=== PATIENT | male | born 1960 | race Caucasian/White ===

== ENCOUNTER 2024-12-26 11:47 | Outpatient (CLI) | payer MEDICARE, SELFPAY ==
--- NOTE | ~2024-12-26 | PE_ITS ---
EXAMINATION: PET_PETPSMAST_PT DATE: 12/26/2024 14:13 INDICATION: Prostate cancer TECHNIQUE: 5.546 mCi of Illucix Ga-68([id number]) was administered i.v. Low dose computed luis graphy (CT) images were acquired from the base of the brain to the base of the brain to the proximal thighs for attenuation correction and anatomic localization. Positron emission tomography (PET) image s were acquired in the same distribution beginning 90 minutes after injection. Images including fused PET/CT images were reconstructed in axial, coronal, and sagittal planes. Automated exposure control technique was employed. The dose-length product was 1082.05mGy-cm. COMPARISON: None FINDINGS: Head/neck: Typical pattern of symmetric physiologic increased activity in the lacrimal, parotid and submandibula r glands as well as along the mucosa of the nasal and oral cavities, pharynx and hypopharynx. No path ologically enlarged cervical lymphadenopathy or suspicious foci of increased uptake in the visualized head or neck. Chest: Mild atelectasis in the bilateral lower lobes and dependent right upper lobe. No suspicious pulmonary nodules, pneumonia, pulmonary edema or pleural effusion. Borderline heart size. No pericardial effus ion. Thoracic aorta is normal in caliber. No pathologically enlarged or PSMA avid thoracic lymphadeno maggi. Abdomen/pelvis/proximal thighs: Physiologic renal accumulation and excretion of activity in the right kidney, bladder and along porti ons of right ureter. Postoperative change of prior left nephrectomy. Prostatomegaly measuring 5.7 x 3 .7 cm. There is a small region of asymmetric increased uptake at the right peripheral zone of the pro state with maximal SUV of 5.3 likely representing the site of the reported primary prostate cancer. P hotopenic defects associated with multiple low-attenuation hepatic cysts, the largest in the right he patic lobe measuring 5.6 cm. Otherwise normal degree and slightly heterogenous pattern of increased u ptake throughout the liver and spleen without radiologic correlate or dominant PSMA avid lesion. The gallbladder, pancreas and bilateral adrenal glands are normal. Moderate uptake scattered throughout t he bowels with typical duodenal and proximal jejunal predominance and without radiologic correlate, a lso likely physiologic. No other abnormal foci of increased uptake or pathologically enlarged lymphad enopathy in the abdomen, pelvis or proximal thighs. Musculoskeletal: Moderate cervical, mild thoracic and severe lumbar spondylosis. Tiny sclerotic bone island without ab normal activity at the right femoral head. No suspicious lytic, blastic or abnormally PSMA avid bone lesions. IMPRESSION: 1. Small focus of mild increased uptake at the right peripheral zone of the is enlarged prostate cons istent with primary prostate cancer. No evident metastatic disease. 2. Status post left nephrectomy. Reviewed, dictated and finalized at location A. IMPRESSION: 1. Small focus of mild increased uptake at the right peripheral zone of the is enlarged prostate consistent with primary prostate cancer. No evident metastati c disease. 2. Status post left nephrectomy.
--- OUTSIDE RECORDS SUMMARY | 2024-12-26 11:53 | XMS_ITS | Patient Health Record ---
Author Organization [facility] Address [address] [place], [place] [address] Care Team Providers Care Circular Knife Machine Cutter Name Role Phone LARRY MORGAN Unavailable [phone] Tirso Weber Unavailable Unavailable Allergies Allergen (clinical drug ingredient) Drug/Non Drug Allergy documented on EMR Reaction Allergy Type Onset Date Status ibuprofen Ibuprofen Unknown Drug Allergy 10/10/2012 active Non-steroidal anti-inflammatory agent (FN) NSAIDs Unknown Drug Allergy Active Reason For Referral No Information Medications Medication SIG (Take, Route, Frequency, Duration) Notes Start Date End Date Status clonazePAM 1 MG Oral Tablet ORAL clonazepam 1 MG Oral TabletOriginal Medicationclonazepam 1 MG Oral Tablet *Reorder from [employer] for eRx and Interaction Alerts* 10/10/2012 Active Amitriptyline & Diet Manage Pr Active Simvastatin 10 MG Oral Tablet ORAL simvastatin 10 MG Oral TabletOriginal Medicationsimvastatin 10 MG Oral Tablet *Reorder from [employer] for eRx and Interaction Alerts* 10/10/2012 Active Immunizations Vaccine Route Administration Date Status Comme nts Typhoid, parenteral Unknown 12/20/2017 Administered Tdap Unknown 11/05/2011 Administered Influenza, unspecified formulation Unknown 06/12/2015 A dministered Hep A, unspecified formulation Unknown 11/11/2017 Admin istered Influenza, quadrivalent, spl it, preservative free, 3 years or older Unknown 04/21/2019 Administered Influenza, quadrivalent, spl it, preservative free, 3 years or older Unknown 03/27/2020 Administered Influenza, quadrivalent, spl it, preservative free, 3 years or older Unknown 04/02/2021 Administered Influenza, quadrivalent, spl it virus Unknown 04/28/2018 Administered Vital Signs Height-cm 177.80 cm 10/17/2024 Weight-kg 83.92 kg 10/17/2024 Height 70.00 in 10/17/2024 Weight 185 lbs 10/17/2024 BMI 26.54 kg/m2 10/17/2024 Encounters Encounter Location Date Provider Diagnosis [facility] [address] [place], [place] [id number] 10/03/2024 LARRYJESUS RODRIGUEZTENBURG Metatarsalgia of right foot M77.41 ; Metatarsalgia of left foot M77.42 ; Other eccrine sweat disorders L74.8 ; Pain in right foot M79.671 and Left foot pain M79.672 [facility] [address] [place], [place] [address] 10/17/2024 LARRY MICHAELTENBURG Metatarsalgia of right foot M77.41 ; Metatarsalgia of left foot M77.42 ; Other eccrine sweat disorders L74.8 ; Pain in right foot M79.671 and Left foot pain M79.672 Assessments Encounter Date Diagnosis (ICD Code) Assessment Notes Treatment Notes Treatment Clinical Notes Section Notes 10/03/2024 Metatarsalgia of right foot (ICD-10 - M77.41) 10/03/2024 Metatarsalgia of left foot (ICD-10 - M77.42) 10/17/2024 Metatarsalgia of right foot (ICD-10 - M77.41) 10/17/2024 Metatarsalgia of left foot (ICD-10 - M77.42) 10/17/2024 Other eccrine sweat disorders (ICD-10 - L74.8) 10/03/2024 Other eccrine sweat disorders (ICD-10 - L74.8) 10/03/2024 Pain in right foot (ICD-10 - M79.671) 10/17/2024 Pain in right foot (ICD-10 - M79.671) 10/17/2024 Left foot pain (ICD-10 - M79.672) 10/03/2024 Left foot pain (ICD-10 - M79.672) 10/03/2024 Other Pyrogallic Acid: Lesions were debrided and pyrogallic acid was applied to the area. Patient was advised to keep dry for 3 days. 10/17/2024 Other Pyrogallic Acid: Lesions were debrided and pyrogallic acid was applied to the area. Patient was advised to keep dry for 3 days. Plan Of Treatment No Information Insurance Providers Payer Name Payer Address Payer Phone Subscriber Number Group Number Insured Name Patient Relationship to Insured Coverage Start Date Coverage End Date [facility] [address] [address] [place], [place] [id number] CAMELIA RAI Self - patient is the insured Medical (General) History Medical History History ICD Code Arthritis Back Trouble Surgical History Surgery Date(Month/Year) kidney transplant
--- OUTSIDE RECORDS SUMMARY | 2024-12-26 11:53 | XMS_ITS | Encounter Summary ---
Author Organization [facility] Address [address] [place] [address] Care Team Providers Care Welder Fitter Arc Name Role Phone Tirso Weber MD Primary Care Provider [phone] Encounter Details Date Type Department Care Team (Late st Contact Info) Description 01/26/2020 Prep for Procedure [facility] [place], [place] [phone] Cecil Jane MD 3 [facility] Brian [address] [place] [phone] Social History Tobacco Use Types Packs/Day Years Used Date Smoking Tobacco: Never Smokeless Tobacco: Never Alcohol Use Standard Drinks/Week Comments Yes 20 (1 standard drink = 0.6 oz pu re alcohol) AUDIT-C Answer Date Recorded Frequency of Alcohol Consumption 4 or more times a week 11/08/2018 Average Number of Drinks 3 or 4 019 Frequency of Binge Drinking Monthly 10/20 PHQ-2 Answer Date Recorded PHQ-2 Score - If the patient scores above 3, please move on to questions 3-9 0 11/20/2019 Sex and Gender Information Value Date Recorded Sex Assigned at Male 11/08/2018 8:38 AM CDT Legal Sex Male 7:22 PM CDT Gender Identity Male 11/08/2018 8:38 AM CDT Sexual Orientation Straight 11/08/2018 8: 38 AM CDT COVID-19 Exposure Response Date Recorded In the last month, have you been in contact with someone who was confirmed or suspected to have Coronavirus / COVID-19? No / Unsure 01/29/2020 12:03 PM CDT documented as of this encounter Plan of Treatment Upcoming Encounters Date Type Department Care Team (Late st Contact Info) Description 10/18/2025 8:40 AM CDT Office Visit [facility] [address], [address] [place] [phone] Casey Veras MD [address] [place] [address] 11/22/2025 9:40 AM CDT Office Visit [facility] [address] [phone] Tirso Weber MD [address] [place] [address] 12/04/2025 10:00 AM CDT Office Visit [facility] [address], [address] [place] [phone] Alfred Rangel MD [address] [place] [address] documented as of this encounter Results * PRE-SURGICAL/PRE-PROCEDURE CORONAVIRUS (COVID 19) (01/26/2020 9:00 AM CDT) CORONAVIRUS SARS COV 2 PCR (RESP) NOT DETECTED NOT DETECTED 01/30/2020 7:58 PM CDT [facility] Comment: A Not Detected (negative) test result for this test means that SARS- CoV-2 RNA was not present in the specimen above the limit of detection. A negative result does not rule out the possibility of COVID-19 and should not be used as the sole basis for treatment or patient management decisions. If COVID-19 is still suspected, based on exposure history together with other clinical findings, re-testing should be considered in consultation with public health authorities. Laboratory test results should always be considered in the context of clinical observations and epidemiological data in making a final diagnosis and patient management decisions. Please review the Fact Sheets and FDA authorized labeling available for health care providers and patients using the following websites: https://www.[employer] Capture.[email or web address]/home/Covid-19/HCP/NAAT/fact-sheet2 https://www.[employer].[email or web address]/home/Covid-19/Patients/NAAT/ fact-sheet2 This test has been authorized by the FDA under an Emergency Use Authorization (EUA) for use by authorized laboratories. Due to the current public health emergency, [facility] is receiving a high volume of samples from a wide variety of swabs and media for COVID-19 testing. In order to serve patients during this public health crisis, samples from appropriate clinical sources are being tested. Negative test results derived from specimens received in non-commercially manufactured viral collection and transport media, or in media and sample collection kits not yet authorized by FDA for COVID-19 testing should be cautiously evaluated and the patient potentially subjected to extra precautions such as additional clinical monitoring, including collection of an additional specimen. Methodology: Nucleic Acid Amplification Test (NAAT) includes PCR or TMA Additional information about COVID-19 can be found at the [facility] website: www.[employer]/Covid19. Test performed at [facility] [address] [place] [address] Director: JEFF CASTAÑEDA DO,MPH NASOPHARYNGEAL SWAB / Unknown 01/26/2020 9:00 AM CDT us Cecil Jane MD MICROBIOLOGY - GENERAL ORDERABLE S Final Result [facility] [id number] [place] [id number] [place] [address] documented in this encounter Visit Diagnoses Diagnosis Constipation- Primary Unspecified constipation documented in this encounter Additional Health Concerns Infection Onset Date Last Indicated Resolved Time COVID-19 Rule Out 01/26/2020 01/26/2020 01/30/2020 7:58 PM CDT documented as of this encounter Care Teams Welder Fitter Arc Relationship Specialty Start Date End Date Tirso Weber MD [address] [place] [address] PCP - General 08/15/15 documented as of this encounter
--- OUTSIDE RECORDS SUMMARY | 2024-12-26 11:53 | XMS_ITS ---
Author Organization [facility] Address [address] [place], [place] [address] Care Team Providers Care Mechanical System Technician Name Role Phone LARRY BROWN Unavailable [phone] Tirso Weber Unavailable Unavailable Allergies Allergen (clinical [...] Medicationsimvastatin 10 MG Oral Tablet *Reorder from [facility] for eRx and Interaction Alerts* 10/10/2012 Active clonazePAM 1 MG Oral Tablet ORAL clonazepam 1 MG Oral TabletOriginal Medicationclonazepam 1 MG Oral Tablet *Reorder from [employer] for eRx and Interaction Alerts* 10/10/2012 Active Amitriptyline & Diet Manage Pr Active Vital Signs Height 70.00 in 10/03/2024 Weight 185 lbs 10/03/2024 BMI 26.54 kg/m2 10/03/2024 Height-cm 177.80 cm 10/03/2024 Weight-kg 83.92 kg 10/03/2024 Encounters Encounter Location Date Provider Diagnosis [facility] [address] [place], [place] [phone] 10/03/2024 LARRY BROWN Metatarsalgia of right foot [...] Notes * CAMELIA RAIDOB:1960 (64 yo M)Acc No.[id number]:10/03/2024 Progress Notes Patient: CAMELIA CONNELLY Provider: Beni Brown DPM :1960 A ge:64 Y S ex:Male Date:10/03/2024 Address:[address] [place] [address] [place] [address] Subjective: * Chief Complaints: * 1 . [...] Medicationclonazepam 1 MG Oral Tablet *Reorder from [employer] for eRx and Interaction Alerts*, Taking Simvastatin 10 MG Oral Tablet ORAL , Notes to Pharmacist: simvastatin 10 MG Oral TabletOriginal Medicationsimvastatin 10 MG Oral Tablet *Reorder from [employer] for eRx and Interaction Alerts*, Medication List [...] X-RAY EXAM OF FOOT, Modifiers: [place] , [address] X-RAY EXAM OF FOOT, Modifiers: LT * Billing Information: * Visit Code: 67458 Office Visit, New Pt., Level 3. * Procedure Codes: 55200 X-RAY EXAM OF FOOT. Modifiers: RT 89267 X-RAY EXAM OF FOOT. Modifiers: LT * Electronic signature of LARRY BROWN DPM on 12/26/2024 at 11:53 AM CDT Sign off status: Pending * Provider: Beni Brown DPM Date: 0 10/03/2024 Generated for Jenni sargent/Jessica/[place] on: 0 12/26/2024 11:53 AM CDT History and Physical Notes * HPI [...]
--- OUTSIDE RECORDS SUMMARY | 2024-12-26 11:53 | XMS_ITS | Clinical Summary ---
Author Organization [facility] Address [address] [place] [address] Care Team Providers Care Logistics Lead Name Role Phone Tirso Weber MD Primary Care Provider [phone] Allergies No known active allergies Medications Probiotic Product (ALIGN) Cap Take 1 capsule by mouth daily. 12/04/19 15 Active multivitamin tablet Take 1 tablet by mouth daily. Active fish oil 1000 MG Cap capsule Take 2 capsules (2,000 mg total) by mouth 2 (two) times daily. Active Glucosamine-Chond roitin (GLUCOSAMINE CHONDR COMPLEX OR) Take by mouth daily. Active clonazePAM 2 MG tablet Take 1 tablet (2 mg total) by mouth nightly at bedtime. 10/25/19 20 Active FIBER ADULT GUMMIES OR Take 1 tablet by mouth 2 (two) times a day. Active aspirin EC (ECOTRIN) 81 MG tablet Take 1 tablet (81 mg total) by mouth daily. Active simvastatin (ZOCOR) 40 MG tabletIndications :Mixed hyperlipidemia TAKE 1 TABLET(40 MG) BY MOUTH DAILY 90 tablet 3 07/19/19 25 Active Ascorbic Acid (VITAMIN C) 500 MG Cap Take 1 capsule by mouth daily. 12/20/19 24 Active Cholecalciferol (VITAMIN D3) 1000 units Cap Take 1 capsule by mouth daily. 12/20/19 24 Active traMADol (ULTRAM) 50 MG tablet 1 as needed (50 MG) Active amitriptyline (ELAVIL) 10 MG tabletIndications :Primary insomnia TAKE 1 TABLET(10 MG) BY MOUTH EVERY NIGHT AT BEDTIME 90 tablet 3 12/26/19 25 Active amitriptyline (ELAVIL) 10 MG tabletIndications :Primary insomnia TAKE 1 TABLET(10 MG) BY MOUTH EVERY NIGHT AT BEDTIME 90 tablet 1 08/24/19 25 025 Discontinued ciprofloxacin (CIPRO) 500 MG tablet Take 1 tablet (500 mg total) by mouth 2 (two) times daily. 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 There is no clinical indication of hyper adrenal ism, acromegaly or thyroid dysfunction. I have requested laboratory workup, including cortisol, acth, IGF-1 as well as TFTs. If these these results are negative, would recommend follow-up MRI in a year Vitamin D deficiency 10/09/2022 Tingling sensation in face 10/09/2022 Snoring 07/29/2021 Overview (12/03/2023): Last Assessment & Plan: His snoring is not disturbing his sleep and he is practicing positional therapy. Peyronie's syndrome 11/10/2018 Wrist pain, right 11/10/2018 Elevated PSA 12/04/2014 Male erectile dysfunction 12/03/2014 Fatigue 01/31/2014 PLMD (periodic limb movement disorder) 3 Overview (12/03/2023): Last Assessment & Plan: PLMS are under control with Klonopin 2 mg at bedtime. Osteoarthrosis 09/19/2012 Notalgia 08/10/2012 Hyperlipidemia 03/09/2012 Willing to be kidney donor 03/07/2012 Resolved Problems Problem Noted Date Diagnosed Date Resolved Date COVID-19 05/27/2021 06/17/2022 Pyriformis syndrome 12/03/2014 11/22/19 25 Encounters Date Type Department Care Team Description 12/05/2024 8:40 AM CDT Office Visit [facility] - [address], [address] [place] [address] Alfred Rangel MD Follow Up 12/05/2024 Scan HEALTH INFO SRVCS Scanned, Doc [facility] 12/05/2024 Travel 11/30/2024 Scan MG HEALTH INFO SRVCS Scanned, Doc [facility] Group 11/22/2024 Results Follow-Up [facility] Internal [address] [address] Tirso Weber MD HEPATITIS C ANTIBODY, ANTINUCLEAR ANTIBODY WI RFX (ЮЛИЯ), C-REACTIVE PROTEIN, Additional followed-up results: 7 11/21/2024 9:20 AM CDT Office Visit [address] [address] Tirso Weber MD Follow Up; Hyperlipidemia; Vitamin D Deficiency; Insomnia NOS; Wrist Pain (Patient c/o worsening B/L wrist pain, patient report having previous xray and 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 ) 11/21/2024 - 11/21/2024 11:59 PM CDT [facility] [address] Tirso Weber MD Discharge Disposition: Home or Self Care (Routine Discharge) 11/21/2024 Travel 11/17/2024 Patient Outreach [address] [address] Tirso Weber MD Pre-visit Gap Closure 10/12/2024 8:20 AM CDT Office Visit [facility] - [facility] [address] [facility], [address] [place] [address] Gómez Veras MD Follow Up 10/12/2024 Travel 10/10/2024 9:50 AM CDT - 10/10/2024 11:59 PM CDT Hospital Encounter [facility] [address] [place] [address] Gómez Veras MD Discharge Disposition: Home or Self Care (Routine Discharge) 10/10/2024 Travel 10/03/2024 Scan MG HEALTH INFO SRVCS Scanned, Doc [facility] from Last 3 Months Immunizations Immunization Administration Dates Next Due Fluzone 6 Months+ (5.0 mL Multi Dose Vial) 04/28 Fluzone 6 Months+ Quad (0.5 mL Prefilled Syringe) 04/02/2021,03/27/2020,04/21/2019 Hepatitis A (Generic) 11/11/2017 Influenza (Generic) 06/12/2015 Tdap (Generic) 11/05/2011 Typhoid Vi Polysaccharide Va cc 25 Mcg/0.5Ml Im Soln 12/20/2017 Family History Medical History Relation Comments Arthritis Brother 1 Heart Disease Brother 1 Heart Disease Brother 2 Heart Disease Brother 3 No Known Problems Father Diabetes Maternal Aunt Heart Disease Maternal Aunt No Known Problems Maternal Grandfather No Known Problems Maternal Grandmother No Known Problems Maternal Uncle Arthritis Mother Cancer Mother No Known Problems Paternal Aunt Cancer Paternal Grandfather No Known Problems Paternal Grandmother No Known Problems Paternal Uncle Arthritis Sister Cancer Sister Heart Disease Sister Hypertension Sister Kidney Disease Sister Relation Status Comments Brother 1 Brother 2 Brother 3 Father Maternal Aunt Maternal Grandfather Maternal Grandmother Maternal Uncle Mother Paternal Aunt Paternal Grandfather Paternal Grandmother Paternal Uncle Sister Social History Tobacco Use Types Packs/Day Years Used Date Smoking Tobacco: Never Passive Smoke Exposure: Past Smokeless Tobacco: Never Tobacco Cessation:Counseling Given: Yes Alcohol Use Standard Drinks/Week Comments Yes 13.3 (1 standard drink = 0.6 oz pure alcohol) 6-12 beers weekly AUDIT-C Answer Date Recorded Frequency of Alcohol Consumption 4 or more times a week 11/08/2018 Average Number of Drinks 3 or 4 019 Frequency of Binge Drinking Monthly 10/20 PHQ-2 Answer Date Recorded Patient Health Questionnaire-2 Score 0 11/21/2024 Sex and Gender Information Value Date Recorded Sex Assigned at Male 11/08/2018 8:38 AM CDT Legal Sex Male 7:22 PM CDT Gender Identity Male 11/08/2018 8:38 AM CDT Sexual Orientation Straight 11/08/2018 8: 38 AM CDT Last Filed Vital Signs Vital Sign Reading Time Taken Comments Blood Pressure 132/86 12/05/2024 8:42 AM CDT Pulse 61 12/05/2024 8:42 AM CDT Temperature 36.7 C (98.1 F) 11/21/2024 9:45 AM CDT Respiratory Rate 16 12/05/2024 8:42 AM CDT Oxygen Saturation 97% 12/05/2024 8:42 AM CDT Inhaled Oxygen Concentration - - Weight 87.1 kg (192 lb) 12/05/2024 8:42 AM CDT Height 177.8 cm (5' 10) 12/05/2024 8:42 AM CDT Body Mass Index 27.55 12/05/2024 8:42 AM CDT Plan of Treatment Upcoming Encounters Date Type Department Care Team (Late st Contact Info) Description 10/18/2025 8:40 AM CDT [facility] - [address], [address] [place] [phone] Gómez Veras MD [address] [place] [phone] 11/22/2025 9:40 AM CDT Office Visit [facility] - [address] [address] Tirso Weber MD [address] [place] [phone] 12/04/2025 10:00 AM CDT Office Visit [facility] - [address], [address] [place] [phone] Alfred Rangel MD [address] [place] [phone] Health Maintenance Due Date Last Done Comments Pneumococcal Vaccine: 50+ Years (1 of 1 - PCV) 2008 Zoster Vaccines (1 of 2) 2008 DTaP, Tdap and Td Vaccines (2 - Td or Tdap) 11/04/2021 11/05/2011 Annual Medicare Wellness Visit 2023 COVID-19 Vaccine ( - season) 2025 05/28/2022, 09/26/2021, 09/09/2020, Additional history exists Postponed from 02/20/2024 (Patient Refused) Colorectal Cancer Screening Colonoscopy (10 Years) 01/28/2030 01/29/2020 RSV Immunization or 60+ Years (1 - 1-dose 75+ series) 2033 Hepatitis C Completed 11/21/2024 PHQ-2 (Physician Capac) Completed 11/21/2024 Meningococcal B Vaccine Aged Out No l onger eligible based on patient's age to complete this topic Meningococcal Vaccine Aged Out No dewayne tata eligible based on patient's age to complete this topic RSV Immunizations Under 20 Months Aged Out No longer eligible based on patient's age to complete this topic Procedures Procedure Name Priority Date/Time Associated Diagnosis Comments COLLECTION VENOUS BLOOD VENIPUNCTURE Routine 11/21/2024 10:59 AM CDT Mixed hyperlipidemia Vitamin D deficiency Pain in both wrists Need for hepatitis C screening test CBC W/DIFF AUTOMATED Routine 11/21/2024 10:59 AM CDT Mixed hyperlipidemia LIPID PANEL Routine 11/21/2024 10:59 AM CDT Mixed hyperlipidemia VITAMIN D, 25 OH Routine 11/21/2024 10:5 9 AM CDT Vitamin D deficiency COMPREHENSIVE METABOLIC PANEL Routine 11/21/2024 10:59 AM CDT Mixed hyperlipidemia CK (CPK) Routine 11/21/2024 10:59 AM CDT Mixed hyperlipidemia URINALYSIS, AUTO, COMPLETE Routine 11/21/2024 10:59 AM CDT Mixed hyperlipidemia RHEUMATOID FACTOR, QUANT Routine 11/21/2024 10:59 AM CDT Pain in both wrists C-REACTIVE PROTEIN Routine 11/21/2024 10 :59 AM CDT Pain in both wrists ANTINUCLEAR ANTIBODY WI RFX Routine 11/21/2024 10:59 AM CDT Pain in both wrists HEPATITIS C ANTIBODY Routine 11/21/2024 10:59 AM CDT Need for hepatitis C screening test MRI BRAIN WWO CON Routine 10/10/2024 11: 00 AM CDT Pituitary cyst (HHS/HCC) from Last 3 Months Results * ANTINUCLEAR ANTIBODY WI RFX (ЮЛИЯ) (11/21/2024 10:59 AM CDT) ЮЛИЯ <0.09 11/22/2024 3:31 PM CDT [facility] Comment: NEGATIVE: <0.7 RATIO ЮЛИЯ PROFILE AND TITER NOT PERFORMED THE ЮЛИЯ SCREEN TESTS FOR THE FOLLOWING ANTIBODIES BY EIA: SSA1 (RO), SSB1 (LA), GARCIA, SCL70, JO1, CENTROMERE, ASSISTANT UNIT FORESTER HISTONE MUST BE ORDERED SEPARATELY DNA (DS) ANTIBODY <0.6 IU/ML 025 3:31 PM CDT [facility] Comment: NEGATIVE: <10 IU/mL EQUIVOCAL: 10 to 15 IU/mL POSITIVE: >15 IU/mL THIS QUANTITATIVE ASSAY IS CALIBRATED TO THE [employer]'S WO/80 STANDARD. THE LEVEL OF dsDNA AUTOANTIBODY GERERALLY CORRELATES WITH THE LEVEL OF DISEASE ACTIVITY IN SYSTEMIC LUPUS ERYTHMATOSUS 11/21/2024 10:5 9 AM CDT us Tirso Weber MD LABORATORY Final Result [facility] [address] [place] [phone], [id number] * RHEUMATOID FACTOR, QUANT (11/21/2024 10:59 AM CDT) RHEUMATOID FACTOR <10 <15 IU/ML 11/21/2024 7:48 PM CDT [facility] 11/21/2024 10:5 9 AM CDT Tirso Weber MD LABORATORY Final Result [facility] [address] [place] [address], [id number] * URINALYSIS (11/21/2024 10:59 AM CDT) COLOR (U) YELLOW 11/21/2024 3:07 PM CDT [facility] TRANSPARENCY CLEAR CLEAR 11/21/2024 3:07 PM CDT [facility] SPECIFIC GRAVITY (U) <1.005 1.003 - 1.040 11/21/2024 3:07 PM CDT [facility] U PH 6.0 5.0 - 9.0 11/21/2024 3:07 PM CDT [facility] PROTEIN RANDOM (U) NEGATIVE NEGATIVE 11/21/2024 3:07 PM CDT [facility] GLUCOSE (U) NEGATIVE NEGATIVE 11/21/2024 3:07 PM CDT [facility] KETONES MG/DL (U) NEGATIVE NEGATIVE 11/21/2024 3:07 PM CDT [facility] BILIRUBIN (U) NEGATIVE NEGATIVE 11/21/2024 3:07 PM CDT [facility] BLOOD (U) NEGATIVE NEGATIVE 11/21/2024 3:07 PM CDT [facility] UROBILINOGEN 0.2 0.0 - 2.0 EU/DL 11/21/2024 3:07 PM CDT [facility] NITRITES NEGATIVE NEGATIVE 11/21/2024 3:07 PM CDT [facility] LEUKOCYTES (U) NEGATIVE NEGATIVE 11/21/2024 3:07 PM CDT [facility] RBC/HPF 0-3 0 - 3 /HPF 11/21/2024 3:07 PM CDT [facility] WBC/HPF 0-3 0 - 3 /HPF 11/21/2024 3:07 PM CDT [facility] EPI/HPF 0-3 /HPF 11/21/2024 3:07 PM CDT [facility] BACTERIA (U) NONE SEEN NONE SEEN 11/21/2024 3:07 PM T [facility] URINE SPECIMEN OBTAINED BY CLEAN CATCH PROCEDURE / Unknown 11/21/2024 10:59 AM CDT Tirso Weber MD URINE ORDERABLES Final Result [facility] [address] [place] [address], * (ABNORMAL) COMPREHENSIVE METABOLIC PANEL (11/21/2024 10:59 AM CDT) SODIUM S/P/B 143 136 - 145 MMOL/L 11/21/2024 3:47 PM CDT [facility] POTASSIUM S/P/B 4.6 3.5 - 5.1 MMOL/L 11/21/2024 3:47 PM CDT [facility] CHLORIDE S/P/B 105 98 - 107 MMOL/L 11/21/2024 3:47 PM CDT [facility] CO2 29.2 21 - 32 MMOL/L 11/21/2024 3:47 PM CDT [facility] GLUCOSE 93 70 - 99 MG/DL 11/21/2024 3:47 PM CDT [facility] BUN 15 7 - 18 MG/DL 11/21/2024 3:47 PM CDT [facility] CREATININE S/P/B 1.15 0.70 - 1.30 MG/DL 11/21/2024 3:47 PM CDT [facility] CALCIUM S/P/B 9.4 8.4 - 10.5 MG/DL 11/21/2024 3:47 PM CDT [facility] BILIRUBIN TOTAL S/P/B 0.5 0.2 - 1.0 MG/DL 11/21/2024 3:47 PM CDT [facility] ALKALINE PHOSPHATASE S/P/B 81 45 - 115 U/L 11/21/2024 3:47 PM CDT [facility] AST 34 15 - 37 U/L 11/21/2024 3:47 PM CDT [facility] ALT 37 16 - 63 U/L 11/21/2024 3:47 PM T [facility] TOTAL PROTEIN S/P/B 7.0 6.4 - 8.2 G/DL 11/21/2024 3:47 PM CDT [facility] ALBUMIN S/P/B 3.9 3.4 - 5.0 G/DL 11/21/2024 3:47 PM CDT [facility] ANION GAP 8.8 5 - 15 MMOL/L 11/21/2024 3:47 PM T [facility] Comment:REFERENCE RANGE NOT ESTABLISHED OSMOLALITY (CALC) 297 MOSM/KG 025 3:47 PM CDT [facility] Comment:REFERENCE RANGE NOT ESTABLISHED GFR ESTIMATE 70(L) >90 ML/MIN/1. 73 M2 11/21/2024 3:47 PM CDT [facility] GFR NOTES GFR REFERENCE S: 11/21/2024 3:47 PM T [facility] Comment: THE ESTIMATED GFR IS CALCULATED USING THE 2020 CKD-EPI EQUATION. THE FOLLOWING CATEGORIES FOR GRADING RENAL FUNCTION ARE RECOMMENDED BY THE INTERNATIONAL SOCIETY OF NEPHROLOGY (KDIGO 2012 CLINICAL PRACTICE GUIDELINE). G1,NORMAL OR HIGH: >89 ml/min/1.73 m2 G2,MILDLY DECREASED: 60-89 ml/min/1.73 m2 G3A,MILDLY TO MODERATELY DECREASED: 45-59 ml/min/1.73 m2 G3B,MODERATELY TO SEVERELY DECREASED: 30-44 ml/min/1.73 m2 G4,SEVERELY DECREASED: 15-29 ml/min/1.73 m2 G5,KIDNEY FAILURE: <15 ml/min/1.73 m2 11/21/2024 10:5 9 AM CDT Tirso Weber MD LABORATORY Final Result [facility] [address] [place] [address], * (ABNORMAL) LIPID PANEL (11/21/2024 10:59 AM CDT) CHOLESTEROL 179 <200 MG/DL 11/21/2024 3:47 PM CDT [facility] TRIGLYCERIDES 67 <150 MG/DL 11/21/2024 3:47 PM CDT [facility] HDL 65 >40 MG/DL 11/21/2024 7:33 PM CDT [facility] LDL-C 101(H) <100 MG/DL 11/21/2024 7:33 PM CDT [facility] VLDL CALCULATION 13 5 - 28 MG/DL 11/21/2024 7:33 PM CDT [facility] CHOL/HDL RATIO 2.8 0.0 - 4.0 11/21/2024 7:33 PM CDT [facility] LDL/HDL 1.6 0.41 - 2.13 11/21/2024 7:33 PM CDT [facility] NON HDL CHOLESTEROL 114 <140 MG/DL 11/21/2024 7:33 PM CDT [facility] 11/21/2024 10:5 9 AM CDT us Tirso Weber MD LABORATORY Final Result Performing Organization Address [facility] Co de Phone Number [facility] [address] [place] [address], [place] [phone] * HEPATITIS C ANTIBODY (11/21/2024 10:59 AM CDT) Pathologist [facility] HEPATITIS C AB NON-REACTI VE NON-REACT ERIC 11/21/2024 7:48 PM CDT [facility] Comment: ANTIBODIES TO HCV NOT DETECTED. DOES NOT EXCLUDE THE POSSIBILITY OF EXPOSURE TO HCV. 11/21/2024 10:5 9 AM CDT us Tirso Weber MD LABORATORY Final Result Performing Organization Address [facility] Co de Phone Number [facility] [address] [place] [address], [place] [phone] * (ABNORMAL) C-REACTIVE PROTEIN (11/21/2024 10:59 AM CDT) [facility] C-REACTIVE PROTEIN 0.31(H) <0.30 mg/dL 11/21/2024 3:47 PM CDT [facility] 11/21/2024 10:5 9 AM CDT us Tirso Weber MD LABORATORY Final Result Performing Organization Address City/[facility] Co de Phone Number [facility] [address] [place] [address], [place] [phone] * (ABNORMAL) CBC W/DIFF AUTOMATED (11/21/2024 10:59 AM CDT) [facility] WBC 5.31 4.00 - 10.80 x10'3/uL 11/21/2024 2:30 PM CDT [facility] RBC 4.72 4.50 - 6.10 x10'6/uL 11/21/2024 2:30 PM CDT [facility] HGB 13.4 13.0 - 18.0 G/DL 11/21/2024 2:30 PM CDT [facility] HCT 42.8 37.0 - 52.0 % 11/21/2024 2:30 PM CDT [facility] MCV 90.7 78.0 - 100.0 FL 11/21/2024 2:30 PM CDT [facility] MCH 28.4 27.0 - 31.0 PG 11/21/2024 2:30 PM CDT [facility] MCHC 31.3(L) 33.0 - 36.0 G/DL 11/21/2024 2:30 PM CDT [facility] RDW 15.7(H) 11.5 - 14.5 % 11/21/2024 2:30 PM CDT [facility] PLT 259 150 - 350 x10'3/uL 11/21/2024 2:30 PM CDT [facility] MPV 10.3 7.4 - 10.4 FL 11/21/2024 2:30 PM CDT [facility] DIFFERENTIAL TYPE AUTOMATED DIFFERENTIAL 11/21/2024 2:31 PM CDT [facility] NEUTROPHILS % 56.4 % 11/21/2024 2:31 PM CDT [facility] LYMPHOCYTES % 26.2 % 11/21/2024 2:31 PM CDT [facility] MONOCYTES % 9.6 % 11/21/2024 2:31 PM CDT [facility] EOSINOPHILS % 7.0 % 11/21/2024 2:31 PM CDT [facility] BASOPHILS % 0.6 % 11/21/2024 2:31 PM CDT [facility] IMMATURE GRANS % 0.2 % 11/21/2024 2:31 PM CDT [facility] ABS. NEUTROPHILS 3.00 1.60 - 8.30 x10'3/uL 11/21/2024 2:31 PM CDT [facility] ABS. LYMPHOCYTES 1.39 0.80 - 4.70 x10'3/uL 11/21/2024 2:31 PM CDT [facility] ABS. MONOCYTES 0.51 0.00 - 1.50 x10'3/uL 11/21/2024 2:31 PM CDT [facility] ABS. EOSINOPHILS 0.37 0.00 - 0.40 x10'3/uL 11/21/2024 2:31 PM CDT [facility] ABS. BASOPHILS 0.03 0.00 - 0.20 x10'3/uL 11/21/2024 2:31 PM CDT [facility] ABS. IMMATURE GRANULOCYTES 0.01 0.00 - 0.03 x10'3/uL 11/21/2024 2:31 PM CDT [facility] 11/21/2024 10:5 9 AM CDT Tirso Weber MD LABORATORY Final Result Performing Organization Address [facility] Co de Phone Number [facility] [address] [place] [address], * VITAMIN D, 25 OH (11/21/2024 10:59 AM CDT) VITAMIN D 25 HYDROXY TOTAL S/P/B 62.0 30 - 100 NG/ML 11/21/2024 3:47 PM CDT [facility] Comment: DEFICIENT <20 INSUFFICIENT 20-30 SUFFICIENT 30-100 11/21/2024 10:5 9 AM CDT Tirso Weber MD LABORATORY Final Result [facility] [address] [place] [address], * (ABNORMAL) CK (CPK) (11/21/2024 10:59 AM CDT) CPK 409(H) 39 - 308 U/L 11/21/2024 8:11 PM CDT [facility] 11/21/2024 10:5 9 AM CDT Tirso Weber MD LABORATORY Final Result Performing Organization Address City/[facility]/ZIP Co de Phone Number [facility] [address] [place] [address], [place] [phone] * MRI BRAIN WWO CON (10/10/2024 11:00 AM CDT) Anatomical Region Laterality Modality Head Magnetic Resonan ce 10/15/2024 6:56 PM CDT Impressions 10/15/2024 7:01 PM CDT IMPRESSION: 1. No significant change in size or appearance of tiny T2 hyperintense, hypoenhancing focus within the pituitary, possibly tiny cyst or cystic microadenoma. 2. Small vessel disease and volume loss. Referred By: GÓMEZ VERAS Interpreted By: Beka Petersen MD, 10/15/2024 6:56 PM Narrative 10/15/2024 7:01 PM CDT [address] [address] INDICATION: Reassess pituitary cyst. Left facial tingling. EXAMINATION: MRI pituitary with and without contrast. TECHNIQUE: Multiplanar and multisequence MRI images of the pituitary were obtained before and after administration of 8 mL Dotarem intravenously without adverse event. COMPARISON: None FINDINGS: Redemonstration of a tiny T2 hyperintense, hypoenhancing focus along the inferior aspect of the pituitary, similar to prior. No other mass lesion or abnormal enhancement elsewhere in the pituitary. No suprasellar mass. No mass effect upon the optic apparatus. Stable leftward infundibular deviation. No definite mass lesion or abnormal enhancement identified within the cavernous sinuses. The remainder of the postcontrast images reveal no abnormal enhancement elsewhere in the visualized portions of the brain. There are patchy foci of T2 hyperintensity suggested in the hemispheric white matter, probably due to small vessel disease. Stable volume loss with enlargement of the ventricles and extra-axial/subarachnoid spaces. No extra-axial collections. Partially imaged portions of the major intracranial arterial flow voids are grossly patent. Craniocervical junction, sellar content, pineal region are unremarkable. Mucosal thickening noted in the paranasal sinuses. Procedure Note Beka Petersen MD - 10/15/2024 [place] [id number] INDICATION: Reassess pituitary cyst. Left facial tingling. EXAMINATION: MRI pituitary with and without contrast. TECHNIQUE: Multiplanar and multisequence MRI images of the pituitary wereobtained before and after administration of 8 mL Dotarem intravenouslywithout adverse event. COMPARISON: None FINDINGS: Redemonstration of a tiny T2 hyperintense, hypoenhancing focus along theinferior aspect of the pituitary, similar to prior. No other mass lesionor abnormal enhancement elsewhere in the pituitary. No suprasellar mass.No mass effect upon the optic apparatus. Stable leftward infundibulardeviation. No definite mass lesion or abnormal enhancement identifiedwithin the cavernous sinuses. The remainder of the postcontrast imagesreveal no abnormal enhancement elsewhere in the visualized portions of thebrain. There are patchy foci of T2 hyperintensity suggested in thehemispheric white matter, probably due to small vessel disease. Stablevolume loss with enlargement of the ventricles andextra-axial/subarachnoid spaces. No extra- axial collections. Partiallyimaged portions of the major intracranial arterial flow voids are grosslypatent. Craniocervical junction, sellar content, pineal region areunremarkable. Mucosal thickening noted in the paranasal sinuses. IMPRESSION: 1. No significant change in size or appearance of tiny T2 hyperintense,hypoenhancing focus within the pituitary, possibly tiny cyst or cysticmicroadenoma. 2. Small vessel disease and volume loss. Referred By: GÓMEZ VERAS Interpreted By: Beka Petersen MD, 10/15/2024 6:56 PM us Gómez Veras MD MRI Final Resul t from Last 3 Months Insurance THE [facility] Care Teams Logistics Lead Relationship Specialty Start Date End Date Tirso Weber MD [address] [place] [address] PCP - General 08/15/15
--- OUTSIDE RECORDS SUMMARY | 2024-12-26 11:53 | XMS_ITS | Encounter Summary ---
Author Organization [facility] Address [address] [place] [address] Care Team Providers Care Gravure Press Set Up Operator Name Role Phone Tirso Weber MD Primary Care Provider Encounter Details Date Type Department Care Team (Late st Contact Info) Description 11/22/2024 Results Follow-Up [facility] Family & Internal Medicine [address] [phone] Tirso Weber MD [address] [place] [address] [id number] HEPATITIS C ANTIBODY, ANTINUCLEAR ANTIBODY WI RFX (ЮЛИЯ), C-REACTIVE PROTEIN, Additional followed-up results: 7 Social History Tobacco Use Types Packs/Day Years Used Date Smoking Tobacco: Never Passive Smoke Exposure: Past Smokeless Tobacco: Never Alcohol Use Standard Drinks/Week Comments Yes 13.3 [...] Orientation Straight 11/08/2018 8: 38 AM CDT documented as of this encounter Progress Notes * Tirso Weber MD - 11/22/2024 6:35 PM CDT Labs are negative for a rheumatologic markers for an inflammatory arthritis. Other labs are good. documented in this encounter Plan of Treatment Upcoming Encounters Date Type Department Care Team (Late st Contact Info) Description 10/18/2025 8:40 AM CDT Office Visit [facility] - [address], [address] [place] [phone] Casey Veras MD [address] [place] [phone] 11/22/2025 9:40 AM CDT Office Visit [facility] Family & Internal Medicine [address] [phone] Tirso Weber MD [facility] [place] [address] 12/04/2025 10:00 AM CDT Office Visit [facility] - [address], [facility] [address] [place] [phone] Alfred Rangel MD [address] [place] [phone] documented as of this encounter Visit Diagnoses Not on filedocumented in this encounter Additional Health Concerns Assessment Noted Time PHQ-9 Depression Total Score: 0 05/27/20 21 11:13 AM ENDBAND SIZER documented as of this encounter Care Teams Gravure Press Set Up Operator Relationship Specialty Start Date End Date Tirso Weber MD [address] [place] [address] PCP - General 2/25/16 documented as of this encounter
== END 2024-12-26 11:48 | disposition home or self-care (01) ==
PROVIDERS: Visit Provider Urology
DX: C61 Malignant neoplasm of prostate (principal)
CPT/HCPCS: 78815; A9596

== ENCOUNTER 2025-01-19 08:03 | Outpatient (CLI) | payer MEDICARE, SELFPAY ==
--- OUTSIDE RECORDS SUMMARY | 2025-01-19 08:10 | XMS_ITS | Patient Health Record ---
Author Organization [facility] Address [address] [place], [place] [id number] Care Team Providers Care Telephone Collector Name Role Phone LARRY MORGAN Unavailable [phone] Tirso Weber Unavailable Unavailable Allergies Allergen (clinical [...] Medicationclonazepam 1 MG Oral Tablet *Reorder from [email or web address] for eRx and Interaction Alerts* 10/10/2012 Active Amitriptyline & Diet Manage Pr Active Simvastatin 10 MG Oral Tablet ORAL simvastatin 10 MG Oral TabletOriginal Medicationsimvastatin 10 MG Oral Tablet *Reorder from [employer] for eRx and Interaction Alerts* 10/10/2012 Active Immunizations Vaccine Route Administration Date Status Comme nts Hep A, unspecified formulation Unknown 11/11/2017 Admin istered Influenza, quadrivalent, spl it virus Unknown 04/28/2018 Administered Influenza, quadrivalent, spl it, preservative free, 3 years or older Unknown 04/21/2019 Administered Influenza, quadrivalent, spl it, preservative free, 3 years or older Unknown 03/27/2020 Administered Influenza, quadrivalent, spl it, preservative free, 3 years or older Unknown 04/02/2021 Administered Influenza, unspecified formulation Unknown 06/12/2015 A dministered Tdap Unknown 11/05/2011 Administered Typhoid, parenteral Unknown 12/20/2017 Administered Vital Signs Height-cm 177.80 cm 10/17/2024 Weight-kg 83.92 kg 10/17/2024 Height 70.00 in 10/17/2024 Weight 185 lbs 10/17/2024 BMI 26.54 kg/m2 10/17/2024 Encounters Encounter Location Date Provider Diagnosis [facility] [address] [place], [place] [id number] 10/03/2024 LARRYJESUS MORGAN Metatarsalgia of right foot M77.41 ; Metatarsalgia of left foot M77.42 ; Other eccrine sweat disorders L74.8 ; Pain in right foot M79.671 and Left foot pain M79.672 [facility] [address] [place], [place] [id number] 10/17/2024 LARRY MICHAELTENBURG Metatarsalgia of right foot [...] Insured Coverage Start Date Coverage End Date [facility] [address] [address] [place], [place] [id number] CAMELIA RAI Self - patient is the insured Medical (General) History Medical History History ICD Code Arthritis Back Trouble Surgical History Surgery Date(Month/Year) kidney transplant
--- OUTSIDE RECORDS SUMMARY | 2025-01-19 08:11 | XMS_ITS ---
Author Organization [facility] Address [address] [place], [place] [id number] Care Team Providers Care Finance Advisor Name Role Phone LARRY BROWN Unavailable [phone] Tirso Weber Unavailable Unavailable Allergies Allergen (clinical [...] Medicationsimvastatin 10 MG Oral Tablet *Reorder from [employer] for eRx and Interaction Alerts* 10/10/2012 Active clonazePAM 1 MG Oral Tablet ORAL clonazepam 1 MG Oral TabletOriginal Medicationclonazepam 1 MG Oral Tablet *Reorder from [employer] for eRx and Interaction Alerts* 10/10/2012 Active Amitriptyline & Diet Manage Pr Active Vital Signs Height 70.00 in 10/03/2024 Weight 185 lbs 10/03/2024 BMI 26.54 kg/m2 10/03/2024 Height-cm 177.80 cm 10/03/2024 Weight-kg 83.92 kg 10/03/2024 Encounters Encounter Location Date Provider Diagnosis [facility] [address] [place], [place] [id number] 10/03/2024 LARRY BROWN Metatarsalgia of right foot [...] Notes * CAMELIA RAIDOB:1960 (64 yo M)Acc No.[id number]:10/03/2024 Progress Notes Patient: CAMELIA CONNELLY Provider: Beni Brown DPM :1960 A ge:64 Y S ex:Male Date:10/03/2024 Address:[address] [place] [address] [place] [address] Subjective: * Chief Complaints: * 1 . [...] Medicationclonazepam 1 MG Oral Tablet *Reorder from [employer] for eRx and Interaction Alerts*, Taking Simvastatin 10 MG Oral Tablet ORAL , Notes to Pharmacist: simvastatin 10 MG Oral TabletOriginal Medicationsimvastatin 10 MG Oral Tablet *Reorder from [employer] for eRx and Interaction Alerts*, Medication List [...] X-RAY EXAM OF FOOT, Modifiers: RT , 66590 X-RAY EXAM OF FOOT, Modifiers: LT * Billing Information: * Visit Code: 21056 Office Visit, New Pt., Level 3. * Procedure Codes: 32677 X-RAY EXAM OF FOOT. Modifiers: RT 23483 X-RAY EXAM OF FOOT. Modifiers: LT * Electronic signature of LARRY BROWN DPM on 01/19/2025 at 08:10 AM CDT Sign off status: Pending * Provider: Beni Brown DPM Date: 10/03/2024 Generated for Jenni sargent/Jessica/[place] on: 0 01/19/2025 08:10 AM CDT History and Physical Notes * [...]
--- OUTSIDE RECORDS SUMMARY | 2025-01-19 08:11 | XMS_ITS | Referral Summary ---
Author Organization [facility] Address [address] [place] [address] Care Team Providers Care Metal Painter Name Role Phone Tirso Weber MD Primary Care Provider Alfred Rangel MD Unavailable [phone] Allergies No known active allergies Medications amitriptyline (ELAVIL) 10 mg tablet TAKE 1 TABLET(10 MG) BY MOUTH EVERY NIGHT AT BEDTIME 07/21/2021 Active aspirin 81 mg enteric coated tablet Take 1 tablet (81 mg total) by mouth daily Active Bifidobacterium infantis (Align) 4 mg capsule Take 1 capsule (4 mg total) by mouth daily 12/03/2014 Active docosahexaenoic acid-epa 120-180 mg capsule Take 2,000 mg by mouth 2 (two) times a day Active simvastatin (ZOCOR) 40 mg tablet Take by mouth daily 03/24/2021 Active traMADoL (ULTRAM) 50 mg tablet Take 1 tablet (50 mg total) by mouth Active clonazePAM (KlonoPIN) 2 mg tabletIndicatio ns:PLMD (periodic limb movement disorder) Take 1 tablet (2 mg total) by mouth nightly 30 tablet 3 08/30/2024 Active Active Problems Problem Noted Date Diagnosed Date Pituitary cyst 07/21/2023 Assessment & Plan (07/21/2023 10:40 AM JOGGER OPERATOR): Incidental finding, without any compressive symptoms. There is no clinical indication of hyper adrenal ism, acromegaly or thyroid dysfunction. I have requested laboratory workup, including cortisol, acth, IGF-1 as well as TFTs. If these these results are negative, would recommend follow-up MRI in a year PLMD (periodic limb movement disorder) Assessment & Plan (08/30/2024 3:38 PM CDT): Due to ongoing symptoms, the patient will continue Klonopin 2 mg nightly. I have refilled the medication will refill for 1 year. Assessment & Plan (08/11/2023 3:27 PM JOGGER OPERATOR): PLMS are under control with Klonopin 2 mg at bedtime. Assessment & Plan (08/05/2022 2:22 PM JOGGER OPERATOR): PLMS are under control with Klonopin 2 mg at bedtime. He will follow-up with me in 1 year. Assessment & Plan (07/29/2021 3:33 PM JOGGER OPERATOR): Patient will continue with Klonopin 2 mg p.o. at bedtime. Snoring 07/29/2021 Assessment & Plan (08/30/2024 3:39 PM CDT): The patient will continue positional therapy. He is on Elavil as ordered by another physician. Assessment & Plan (08/11/2023 3:28 PM JOGGER OPERATOR): His snoring is not disturbing his sleep and he is practicing positional therapy. Assessment & Plan (08/05/2022 2:22 PM JOGGER OPERATOR): His snoring is not disturbing his sleep and he is practicing positional therapy. Assessment & Plan (07/29/2021 3:29 PM JOGGER OPERATOR): The patient will continue with positional therapy to treat snoring Fatigue 01/31/2014 Dyslipidemia 01/31/2014 Notalgia 08/10/2012 Chronic low back pain 08/10/2012 Swelling of the testicles 08/10/2012 Willing to be kidney donor 03/07/2012 Social History Tobacco Use Types Packs/Day Years Used Date Smoking Tobacco: Never Smokeless Tobacco: Never Tobacco Cessation:Counseling Given: Not Answered AUDIT-C Answer Date Recorded Q1: How often do you have a drink containing alcohol? 4 or more times a week 07/29/2021 Q2: How many drinks containi ng alcohol do you have on a typical day when you are drinking? 3 or 4 Q3: How often do you have si x or more drinks on one occasion? Weekly 07/29/2021 Sex and Gender Information Value Date Recorded Sex Assigned at Not on file Legal Sex Male 3:58 AM JOGGER OPERATOR Gender Identity Not on file Sexual Orientation Not on file Last Filed Vital Signs Vital Sign Reading Time Taken Comments Blood Pressure 125/89 08/30/2024 2:35 PM CDT Pulse 61 08/30/2024 2:35 PM CDT Temperature 36.8 C (98.2 F) 08/30/2024 2:35 PM CDT Respiratory Rate 16 08/30/2024 2:35 PM CDT Oxygen Saturation 97% 08/30/2024 2:35 PM CDT Inhaled Oxygen Concentration - - Weight 90 kg (198 lb 6.4 oz) 08/30/2024 2:35 PM CDT Height 177.8 cm (5' 10) 08/30/2024 2:35 PM CDT Body Mass Index 28.47 08/30/2024 2:35 PM CDT Plan of Treatment Not on file Insurance [employer] OPEN ACCESS [facility] MEDICARE ADVANTAGE [facility] Care Teams Metal Painter Relationship Specialty Start Date End Date Tirso Weber MD [address] [place] [address] PCP - General 07/21/19 Alfred Rangel MD [address] [place] [address] Referring Physician Neurology 10/15/23
--- OUTSIDE RECORDS SUMMARY | 2025-01-19 08:11 | XMS_ITS | Clinical Summary ---
Author Organization [facility] Address [address] [place] [address] Care Team Providers Care Bundle Helper Name Role Phone Tirso Weber MD Primary Care Provider [phone] Alfred Rangel MD Unavailable [phone] Allergies No known active allergies Medications amitriptyline [...] 07/21/2023 Assessment & Plan (07/21/2023 10:40 AM INSIDE SALES REPRESENTATIVE): Incidental finding, without any compressive symptoms. There [...] year. Assessment & Plan (08/11/2023 3:27 PM INSIDE SALES REPRESENTATIVE): PLMS are under control with Klonopin 2 mg at bedtime. Assessment & Plan (08/05/2022 2:22 PM INSIDE SALES REPRESENTATIVE): PLMS are under control with Klonopin 2 mg at bedtime. He will follow-up with me in 1 year. Assessment & Plan (07/29/2021 3:33 PM INSIDE SALES REPRESENTATIVE): Patient will continue with Klonopin 2 mg p.o. at bedtime. Snoring 07/29/2021 Assessment & Plan (08/30/2024 3:39 PM CDT): The patient will continue positional therapy. He is on Elavil as ordered by another physician. Assessment & Plan (08/11/2023 3:28 PM INSIDE SALES REPRESENTATIVE): His snoring is not disturbing his sleep and he is practicing positional therapy. Assessment & Plan (08/05/2022 2:22 PM INSIDE SALES REPRESENTATIVE): His snoring is not disturbing his sleep and he is practicing positional therapy. Assessment & Plan (07/29/2021 3:29 PM INSIDE SALES REPRESENTATIVE): The patient will continue with positional therapy to treat snoring Fatigue 01/31/2014 Dyslipidemia 01/31/2014 Notalgia 08/10/2012 Chronic low back pain 08/10/2012 Swelling of the testicles 08/10/2012 Willing to be kidney donor 03/07/2012 Medical History Medical History Date Comments Hypertension Cyst of pituitary gland Family History Medical History Relation Name Comments Cancer Mother Diabetes Mother Stroke Mother Kidney disease Sister Family histor y of chronic kidney disease - (Added by TW Conv) Relation Name Status Comments Mother Sister Social History Tobacco Use Types Packs/Day [...] on file Legal Sex Male 3:58 AM INSIDE SALES REPRESENTATIVE Gender Identity Not on file Sexual Orientation Not on file Obstetrics History Last Filed Vital Signs Vital Sign Reading [...] 08/30/2024 2:35 PM CDT Plan of Treatment Health Maintenance Due Date Last Done Comments Colon Cancer Screening-Colonoscopy 1960 Depression Screening 1960 Fall Risk Assessment 1960 Hepatitis C Screening 1960 Prostate Cancer Screening-PSA 1960 Hepatitis B Screening 1976 Pneumococcal vaccine 65+ (1 of 1 - PCV) 2008 Zoster Vaccine (1 of 2) 2008 DTaP/Tdap/Td Vaccine (2 - Td or Tdap) 11/04/2021 11/05/2011 Well Visit 65+ 2023 Covid-19 Vaccine (3 - 2023-2 5 season) 2024 09/09/2020, 08/20/2020 Influenza Vaccine (#1) 2025 , 03/27/2020, 04/21/2019, Additional history exists Insurance RF Code OPEN ACCESS [employer] MEDICARE ADVANTAGE [facility] Address: [address] [address] [place] [address] [employer] [place] Care Teams Bundle Helper Relationship Specialty Start Date End Date Tirso Weber MD [address] [place] [address] PCP - General 07/21/19 Alfred Rangel MD [address] [place] [address] Referring Physician Neurology 10/15/23
--- NOTE | 2025-01-19 09:04 | ECG_ITS ---
Test Date: 2025-01-19 09:21:52 Measurements Intervals [place] Rate: 53 P: 50 MA: 127 QRS: 5 QRSD: 91 T: 15 QT: 427 QTc: 403 Interpretive Statements SINUS BRADYCARDIA DELAYED PRECORDIAL R/S TRANSITION BASELINE ARTIFACT- I, II, III, AVR, AVL, AVF BORDERLINE ECG No previous ECG available for comparison Electronically Signed On 01-19-2025 09:46:57 CDT by Dennis Oneal D.O.
[2025-01-19 09:32] LABS: Hematocrit 41.8 % (42.0-52.0); Hemoglobin 13.1 g/dL (14.0-18.0); Immature Granulocyte Percent A 0.2 % (0-0.5); Lymphocytes Absolute Auto 1.43 K/mm3 (0.9-3.2); Mean Corpuscular HGB Conc 31.3 g/dl (32-36); Mean Corpuscular Hemoglobin 28.8 pg (26-34); Mean Corpuscular Volume 91.9 fl (80-100); Nucleated Red Blood Cells Absolute Auto 0.000 K/mm3 (0.0-0.012); Nucleated Red Blood Cells Perc 0.0 % (0.0-0.2); Platelet Count Result 217 k/mm3 (150-375); Red Blood Count 4.55 M/mm3 (4.6-6.20); White Blood Count 5.3 K/mm3 (4.5-10.0)
[2025-01-19 09:52] LABS: INR 1.0; Prothrombin Time 13.1 Seconds (11.1-14.7)
[2025-01-19 09:53] LABS: Partial Thromboplastin Time 27.7 Seconds (22.3-36.8)
[2025-01-19 09:55] LABS: Alanine Aminotransferase 26 U/L (6-50); Albumin Level 4.5 g/dL (3.5-5.1); Alkaline Phosphatase 66 U/L (38-126); Anion Gap 3 mmol/L (4-12); Aspartate Amino Transferase 44 U/L (17-59); Bilirubin,Total 0.3 mg/dL (0.2-1.3); Blood Urea Nitrogen 17 mg/dL (9-20); Calcium 9.3 mg/dL (8.4-10.2); Carbon Dioxide 29 mmol/L (22-30); Chloride 103 mmol/L (98-107); Estimated Glomerular Filt Rate > 60; Glucose 102 mg/dL (65-110); Potassium 4.5 mmol/L (3.4-5.0); Sodium 135 mmol/L (137-145); Total Protein 7.2 g/dL (6.3-8.2)
== END 2025-01-19 08:04 | disposition home or self-care (01) ==
LOC: ANHSURGERY 08:08
PROVIDERS: PCP Internal Medicine; Visit Provider Urology
DX: Z01.818 Encounter for other preprocedural examination (principal); C61 Malignant neoplasm of prostate; E78.00 Pure hypercholesterolemia, unspecified
CPT/HCPCS: 36415; 80053; 85025; 85610; 85730; 86850; 86900; 86901; 87086; 93005

== ENCOUNTER 2025-01-30 02:37 | Day surgery (SDC) | payer MEDICARE, SELFPAY ==
[2025-01-19 08:25] VITALS: BP 128/75; PULSE 56; RESP 16; TEMP 36.5; O2SAT 98; BMI 28.7
--- NOTE | 2025-01-19 08:49 | PC.NURSE ---
Addendum entered by Talia Shah RN 01/19/25 11:46: CLARIFICATION: BOWEL PREP PER DR FAITH ON DAY PRIOR TO SURGERY (NO SOLIDS DAY BEFORE SURGERY). PT RELAYS UNDERSTANDING. Original Note: Report to the Outpatient Waiting Room, entrance under the [facility] located off [facility], at time __6:00AM___ on date ___01/30/25___. Planned Procedure Time: ___7:30AM___.? Time changes happen often and if your time is changed the preop area will call you the afternoon before. - You and your visitor will be asked to self-screen and do not enter if you have any COVID symptoms. Please call surgeon if you need to reschedule. - A mask is optional within the hospital at this time. Patients may have clear liquids (water, carbonated beverages, clear teas, apple juice) until 3 hours prior to surgery (4:30AM) with a maximum of 20 ounces. - No food from midnight until time of surgery and no smoking, or chewing tobacco (or any form of nicotine). No chewing gum, candy or mints. Take only the following medications with a SIP of water on the morning of surgery: NONE DO NOT STOP ANY OF YOUR OTHER PRESCRIPTION MEDICATIONS PRIOR TO SURGERY EXCEPT THE FOLLOWING Medications to discontinue per physician HOLD ASPIRIN AND ALL VITAMINS/SUPPLEMENTS 7 DAYS PRE-OP PER DR FAITH Date to take last dose 01/22/25 Please no make-up, nail kazakh, hairspray, perfume, deodorant, or body powder the day of surgery.? No jewelry (including any body piercings) or valuables the day of surgery, leave them at home.? Please take a shower or bath the night before, or the morning of, surgery with an antibacterial soap.? Wear comfortable, loose fitting clothing.? - Jewelry must be removed prior to entering the operating room.? Rings and piercings that are not removed may be cut off. - The hospital will not accept responsibility for valuables.? - Please leave all valuables, including medications, at home the day of surgery. If you are going home after surgery, a licensed hole digger truck driver must drive you home.? - NO public transportation without another adult if you receive anesthesia. - We recommend that an adult stay with you for 24 hours following discharge. - We also recommend that you do not drive, make important decision, drink alcoholic beverages, or take any drugs that were not prescribed by your health care provider for at least 24 hours after your discharge time. Follow any additional instructions given to you from your surgeon. Telephone instructions given to ____PATIENT and asked if any additional questions and then verbalized understanding. Patient advised to call surgeon office or pre surgery nurse liaison [phone] if any additional questions.
[2025-01-30] VITALS (19 sets, daily range): BP systolic 110–131; BP diastolic 64–86; PULSE 53–73; RESP 10–18; TEMP 36.3–36.5; O2SAT 95–100; BMI 27.1
--- OUTSIDE RECORDS SUMMARY | 2025-01-30 02:40 | XMS_ITS | Patient Health Record ---
Author Organization [facility] Address [address] [place], [place] [address] Care Team Providers Care Appeals Manager Name Role Phone LARRY MORGAN Unavailable [phone] Tirso Weber Unavailable Unavailable Allergies Allergen (clinical [...] Medicationclonazepam 1 MG Oral Tablet *Reorder from [employer] for eRx and Interaction Alerts* 10/10/2012 Active Amitriptyline & Diet Manage Pr Active Simvastatin 10 MG Oral Tablet ORAL simvastatin 10 MG Oral TabletOriginal Medicationsimvastatin 10 MG Oral Tablet *Reorder from [employer] for eRx and Interaction Alerts* 10/10/2012 Active Immunizations Vaccine Route Administration Date Status Comme nts Typhoid, parenteral Unknown 12/20/2017 Administered Tdap Unknown 11/05/2011 Administered Influenza, unspecified formulation Unknown 06/12/2015 A dministered Influenza, quadrivalent, spl it, preservative free, 3 years or older Unknown 04/21/2019 Administered Influenza, quadrivalent, spl it, preservative free, 3 years or older Unknown 03/27/2020 Administered Influenza, quadrivalent, spl it, preservative free, 3 years or older Unknown 04/02/2021 Administered Influenza, quadrivalent, spl it virus Unknown 04/28/2018 Administered Hep A, unspecified formulation Unknown 11/11/2017 Admin istered Vital Signs Height-cm 177.80 cm 10/17/2024 Weight-kg 83.92 kg 10/17/2024 Height 70.00 in 10/17/2024 Weight 185 lbs 10/17/2024 BMI 26.54 kg/m2 10/17/2024 Encounters Encounter Location Date Provider Diagnosis [facility] [address] [place], [place] [id number] 10/03/2024 LARRYJESUS RODRIGUEZTENBURG Metatarsalgia of right foot M77.41 ; Metatarsalgia of left foot M77.42 ; Other eccrine sweat disorders L74.8 ; Pain in right foot M79.671 and Left foot pain M79.672 [facility] [address] [place], [place] [id number] 10/17/2024 LARRY MICHAELTENBURG Metatarsalgia of right foot [...] Insured Coverage Start Date Coverage End Date [facility] [address] [address] [place], [place] [id number] CAMELIA RIA Self - patient is the insured Medical (General) History Medical History History ICD Code Arthritis Back Trouble Surgical History Surgery Date(Month/Year) kidney transplant
--- OUTSIDE RECORDS SUMMARY | 2025-01-30 02:40 | XMS_ITS | Encounter Summary ---
Author Organization [facility] Address [address] [place] [address] Care Team Providers Care Crutch Maker Name Role Phone Tirso Weber MD Primary Care Provider [phone] Encounter Details Date Type Department Care Team (Late st Contact Info) Description 01/26/2020 Prep for Procedure [facility] [place], [place] [id number] Cecil Jane MD 3 [facility] Brian [address] [place] [address] [phone] Social History Tobacco Use Types Packs/Day Years [...] Description 10/18/2025 8:40 AM CDT Office Visit [facility] [address] [facility], [address] [place] [phone] Casey Veras MD 3 [place] [address] 11/22/2025 9:40 AM CDT Office Visit [facility] Family & Internal Medicine [address] [address] Tirso Weber MD [address] [place] [address] 12/04/2025 10:00 AM CDT Office Visit [facility] [address] [facility], [address] [place] [phone] Alfred Rangel MD 3 [place] [address] documented as of this encounter Results * PRE-SURGICAL/PRE-PROCEDURE CORONAVIRUS (COVID 19) (01/26/2020 9:00 AM CDT) CORONAVIRUS SARS COV 2 PCR (RESP) NOT DETECTED NOT DETECTED 01/30/2020 7:58 PM CDT [facility] Comment: A Not Detected (negative) test [...] providers and patients using the following websites: https://www.IPLogic.Arpeggi/home/Covid-19/HCP/NAAT/fact-sheet2 https://www.IPLogic.Arpeggi/home/Covid-19/Patients/NAAT/ fact-sheet2 This test has been authorized by the FDA under an Emergency Use Authorization (EUA) for use by authorized laboratories. Due to the current public health emergency, [facility] is receiving a high volume of samples [...] about COVID-19 can be found at the [facility] website: www.StyleFeeder/Covid19. Test performed at [facility] [address] [place] [address] Director: JEFF CASTAÑEDA DO,MPH NASOPHARYNGEAL SWAB / Unknown 01/26/2020 9:00 AM CDT us Cecil Jane MD MICROBIOLOGY - GENERAL ORDERABLE S Final Result [facility] [id number] [place] [id number] [place] [address] documented in this encounter Visit Diagnoses Diagnosis Constipation- Primary Unspecified constipation documented in this encounter Additional Health Concerns Infection Onset Date Last Indicated Resolved Time COVID-19 Rule Out 01/26/2020 01/26/2020 01/30/2020 7:58 PM CDT documented as of this encounter Care Teams Crutch Maker Relationship Specialty Start Date End Date Tirso Weber MD [address] [place] [address] PCP - General 08/15/15 documented as of this encounter
--- OUTSIDE RECORDS SUMMARY | 2025-01-30 02:40 | XMS_ITS | Clinical Summary ---
Author Organization [facility] Address [address] [place] [address] Care Team Providers Care Time Stamp Assembler Name Role Phone Tirso Weber MD Primary Care Provider [phone] Allergies No known active allergies Medications Probiotic Product (ALIGN) Cap Take 1 capsule by mouth daily. 5 Active multivitamin tablet Take 1 tablet by mouth daily. Active fish oil 1000 MG Cap capsule Take 2 capsules (2,000 mg total) by mouth 2 (two) times daily. Active Glucosamine-Chondro itin (GLUCOSAMINE CHONDR COMPLEX OR) Take by mouth daily. Active clonazePAM 2 MG tablet Take 1 tablet (2 mg total) by mouth nightly at bedtime. 0 Active FIBER ADULT GUMMIES OR Take 1 tablet by mouth 2 (two) times a day. Active aspirin EC (ECOTRIN) 81 MG tablet Take 1 tablet (81 mg total) by mouth daily. Active simvastatin (ZOCOR) 40 MG tabletIndications:M ixed hyperlipidemia TAKE 1 TABLET(40 MG) BY MOUTH DAILY 90 tablet 3 5 Active Ascorbic Acid (VITAMIN C) 500 MG Cap Take 1 capsule by mouth daily. 4 Active Cholecalciferol (VITAMIN D3) 1000 units Cap Take 1 capsule by mouth daily. 4 Active traMADol (ULTRAM) 50 MG tablet 1 as needed (50 MG) Active amitriptyline (ELAVIL) 10 MG tabletIndications:P rimary insomnia TAKE 1 TABLET(10 MG) BY MOUTH EVERY NIGHT AT BEDTIME 90 tablet 3 5 Active Active Problems Problem Noted Date Diagnosed [...] Encounters Date Type Department Care Team Description 01/19/2025 Scan [employer] SRVCS Scanned, Doc [facility] Lab (SCAN) 12/05/2024 8:40 AM CDT Office Visit [facility] Medical Group Multispecialty Care - [address], [address] [place] [phone] Alfred Rangel MD Follow Up 12/05/2024 Scan HEALTH INFO SRVCS Scanned, Doc [facility] Group 12/05/2024 Travel 11/30/2024 Scan [employer] INFO SRVCS Scanned, Doc [facility] 11/22/2024 Results Follow-Up [address] [address] Tirso Weber MD HEPATITIS C ANTIBODY, ANTINUCLEAR ANTIBODY WI RFX (ЮЛИЯ), C-REACTIVE PROTEIN, Additional followed-up results: 7 11/21/2024 9:20 AM CDT Office Visit [address] [address] Tirso Weber MD Follow Up; Hyperlipidemia; Vitamin D Deficiency; Insomnia NOS; Wrist Pain (Patient c/o worsening B/L wrist pain, patient report having previous xray and 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 ) 11/21/2024 - 11/21/2024 11:59 PM CDT Hospital Encounter [facility] [address] [place] [address] Tirso Weber MD Discharge Disposition: Home or Self Care (Routine Discharge) 11/21/2024 Travel 11/17/2024 Patient Outreach [address] [address] Tirso Weber MD Pre-visit Gap Closure from Last 3 Months Immunizations Immunization Administration [...] Description 10/18/2025 8:40 AM CDT Office Visit [facility] Medical Group Multispecialty Care - [address], [address] [place] [phone] Casey Veras MD [address] [place] [address] 11/22/2025 9:40 AM CDT Office Visit [facility] Medical Group Family & Internal Medicine - [address] [address] Tirso Weber MD [address] [place] [address] 12/04/2025 10:00 AM CDT Office Visit [facility] Multispecialty Care - [address], [address] [place] [phone] Alfred Rangel MD [address] [place] [address] Health Maintenance Due Date Last Done Comments Pneumococcal Vaccine: 50+ Years (1 of 1 - PCV) 2008 Zoster Vaccines (1 of 2) 2008 DTaP, Tdap and Td Vaccines (2 - Td or Tdap) 11/04/2021 11/05/2011 Annual Medicare Wellness Visit 2023 COVID-19 Vaccine ( season) 2025 05/28/2022, 09/26/2021, 09/09/2020, Additional history exists Postponed from 02/20/2024 (Patient Refused) Colorectal Cancer Screening Colonoscopy (10 Years) 01/28/2030 01/29/2020 RSV Immunization or 60+ Years (1 - 1-dose 75+ series) 2033 Hepatitis C Completed 11/21/2024 PHQ-2 (Physician [place]) Completed 11/21/2024 Meningococcal B Vaccine Aged Out No l onger eligible based on patient's age to complete this topic Meningococcal Vaccine Aged Out No dewayne tata eligible based on patient's age to complete this topic RSV Immunizations Under 20 Months Aged Out No longer eligible based on patient's age to complete this topic Procedures Procedure Name Priority Date/Time Associated Diagnosis Comments OUTSIDE PT/INR (SCAN ORDER) 01/19/2025 OUTSIDE LAB (SCAN ORDER) 01/19/2025 OUTSIDE LAB (SCAN ORDER) 01/19/2025 OUTSIDE LAB (SCAN ORDER) 01/19/2025 COLLECTION VENOUS BLOOD VENIPUNCTURE Routine 11/21/2024 10:59 [...] CDT Need for hepatitis C screening test from Last 3 Months Results * OUTSIDE PT/INR (SCAN ORDER) (01/19/2025) 01/19/2025 [facility] Scanned SCANNING Final Resu lt * OUTSIDE LAB (SCAN ORDER) (01/19/2025) Only the most recent of3 resultswithin the time period is included. 01/19/2025 [facility] Scanned SCANNING Final Resu lt * ANTINUCLEAR ANTIBODY WI RFX (ЮЛИЯ) (11/21/2024 10:59 AM CDT) ЮЛИЯ <0.09 11/22/2024 3:31 PM CDT [facility] Comment: NEGATIVE: <0.7 RATIO ЮЛИЯ PROFILE AND TITER NOT PERFORMED THE ЮЛИЯ SCREEN TESTS FOR THE FOLLOWING ANTIBODIES BY EIA: SSA1 (RO), SSB1 (LA), GARCIA, SCL70, JO1, CENTROMERE, COMBAT SYSTEMS OPERATOR [employer] HISTONE MUST BE ORDERED SEPARATELY DNA (DS) ANTIBODY <0.6 IU/ML 025 3:31 PM CDT [facility] Comment: NEGATIVE: <10 IU/mL EQUIVOCAL: 10 to 15 IU/mL POSITIVE: >15 IU/mL THIS QUANTITATIVE ASSAY IS CALIBRATED TO THE [employer]'S WO/80 STANDARD. THE LEVEL OF dsDNA AUTOANTIBODY GERERALLY CORRELATES WITH THE LEVEL OF DISEASE ACTIVITY IN SYSTEMIC LUPUS ERYTHMATOSUS 11/21/2024 10:5 9 AM CDT Tirso Weber MD LABORATORY Final Result [facility] [address] [place] [address], [id number] * RHEUMATOID FACTOR, QUANT (11/21/2024 10:59 AM CDT) RHEUMATOID FACTOR <10 <15 IU/ML 11/21/2024 7:48 PM CDT [facility] 11/21/2024 10:5 9 AM CDT Tirso Weber MD LABORATORY Final Result [facility] [address] [place] [address], [id number] * URINALYSIS (11/21/2024 10:59 AM CDT) COLOR (U) YELLOW 11/21/2024 3:07 PM CDT [facility] TRANSPARENCY CLEAR CLEAR 11/21/2024 3:07 PM CDT [facility] SPECIFIC GRAVITY (U) <1.005 1.003 - 1.040 11/21/2024 3:07 PM CDT [facility] U PH 6.0 5.0 - 9.0 11/21/2024 3:07 PM CDT [facility] PROTEIN RANDOM (U) NEGATIVE NEGATIVE 11/21/2024 3:07 PM CDT [facility] GLUCOSE (U) NEGATIVE NEGATIVE 11/21/2024 3:07 PM CDT [facility] KETONES MG/DL (U) NEGATIVE NEGATIVE 11/21/2024 3:07 PM CDT [facility] BILIRUBIN (U) NEGATIVE NEGATIVE 11/21/2024 3:07 PM T [facility] BLOOD (U) NEGATIVE NEGATIVE 11/21/2024 3:07 PM CDT [facility] UROBILINOGEN 0.2 0.0 - 2.0 EU/DL 11/21/2024 3:07 PM CDT [facility] NITRITES NEGATIVE NEGATIVE 11/21/2024 3:07 PM T [facility] LEUKOCYTES (U) NEGATIVE NEGATIVE 11/21/2024 3:07 PM CDT [facility] RBC/HPF 0-3 0 - 3 /HPF 11/21/2024 3:07 PM CDT [facility] WBC/HPF 0-3 0 - 3 /HPF 11/21/2024 3:07 PM CDT [facility] EPI/HPF 0-3 /HPF 11/21/2024 3:07 PM CDT [facility] BACTERIA (U) NONE SEEN NONE SEEN 11/21/2024 3:07 PM CDT [facility] URINE SPECIMEN OBTAINED BY CLEAN CATCH PROCEDURE / Unknown 11/21/2024 10:59 AM CDT Tirso Weber MD URINE ORDERABLES Final Result [facility] [address] [place] [address], * (ABNORMAL) COMPREHENSIVE METABOLIC PANEL (11/21/2024 10:59 AM CDT) SODIUM S/P/B 143 136 - 145 MMOL/L 11/21/2024 3:47 PM CDT [facility] POTASSIUM S/P/B 4.6 3.5 - 5.1 MMOL/L 11/21/2024 3:47 PM CDT [facility] CHLORIDE S/P/B 105 98 - 107 MMOL/L 11/21/2024 3:47 PM CDT [facility] CO2 29.2 21 - 32 MMOL/L 11/21/2024 3:47 PM CDT [facility] GLUCOSE 93 70 - 99 MG/DL 11/21/2024 3:47 PM CDT [facility] BUN 15 7 - 18 MG/DL 11/21/2024 3:47 PM CDT [facility] CREATININE S/P/B 1.15 0.70 - 1.30 MG/DL 11/21/2024 3:47 PM CDT [facility] CALCIUM S/P/B 9.4 8.4 - 10.5 MG/DL 11/21/2024 3:47 PM CDT [facility] BILIRUBIN TOTAL S/P/B 0.5 0.2 - 1.0 MG/DL 11/21/2024 3:47 PM T [facility] ALKALINE PHOSPHATASE S/P/B 81 45 - 115 U/L 11/21/2024 3:47 PM T [facility] AST 34 15 - 37 U/L 11/21/2024 3:47 PM CDT [facility] ALT 37 16 - 63 U/L 11/21/2024 3:47 PM T [facility] TOTAL PROTEIN S/P/B 7.0 6.4 - 8.2 G/DL 11/21/2024 3:47 PM T [facility] ALBUMIN S/P/B 3.9 3.4 - 5.0 G/DL 11/21/2024 3:47 PM [facility] ANION GAP 8.8 5 - 15 MMOL/L 11/21/2024 3:47 PM T [facility] Comment:REFERENCE RANGE NOT ESTABLISHED OSMOLALITY (CALC) 297 MOSM/KG 025 3:47 PM T [facility] Comment:REFERENCE RANGE NOT ESTABLISHED GFR ESTIMATE 70(L) >90 ML/MIN/1. 73 M2 11/21/2024 3:47 PM [facility] GFR NOTES GFR REFERENCE S: 11/21/2024 3:47 PM [facility] Comment: THE ESTIMATED GFR IS CALCULATED USING [...] CDT Tirso Weber MD LABORATORY Final Result [facility] [address] [place] [address], [place] [phone] * (ABNORMAL) LIPID PANEL (11/21/2024 10:59 AM CDT) [facility] CHOLESTEROL 179 <200 MG/DL 11/21/2024 3:47 PM CDT [facility] TRIGLYCERIDES 67 <150 MG/DL 11/21/2024 3:47 PM CDT [facility] HDL 65 >40 MG/DL 11/21/2024 7:33 PM CDT [facility] LDL-C 101(H) <100 MG/DL 11/21/2024 7:33 PM CDT [facility] VLDL CALCULATION 13 5 - 28 MG/DL 11/21/2024 7:33 PM CDT [facility] CHOL/HDL RATIO 2.8 0.0 - 4.0 11/21/2024 7:33 PM CDT [facility] LDL/HDL 1.6 0.41 - 2.13 11/21/2024 7:33 PM CDT [facility] NON HDL CHOLESTEROL 114 <140 MG/DL 11/21/2024 7:33 PM CDT [facility] 11/21/2024 10:5 9 AM CDT Tirso Weber MD LABORATORY Final Result [facility] [address] [place] [address], [place] [phone] * HEPATITIS C ANTIBODY (11/21/2024 10:59 AM CDT) Pathologist [facility] HEPATITIS C AB NON-REACTI VE NON-REACT ERIC 11/21/2024 7:48 PM CDT [facility] Comment: ANTIBODIES TO HCV NOT DETECTED. DOES NOT EXCLUDE THE POSSIBILITY OF EXPOSURE TO HCV. 11/21/2024 10:5 9 AM CDT us Tirso Weber MD LABORATORY Final Result [facility] [address] [place] [address], [place] [phone] * (ABNORMAL) C-REACTIVE PROTEIN (11/21/2024 10:59 AM CDT) [facility] C-REACTIVE PROTEIN 0.31(H) <0.30 mg/dL 11/21/2024 3:47 PM CDT [facility] 11/21/2024 10:5 9 AM CDT us Tirso Weber MD LABORATORY Final Result Performing Organization Address City/[facility] Co de Phone Number [facility] [address] [place] [address], [place] [phone] * (ABNORMAL) CBC W/DIFF AUTOMATED (11/21/2024 10:59 AM CDT) [facility] WBC 5.31 4.00 - 10.80 x10'3/uL 11/21/2024 2:30 PM CDT [facility] RBC 4.72 4.50 - 6.10 x10'6/uL 11/21/2024 2:30 PM CDT [facility] HGB 13.4 13.0 - 18.0 G/DL 11/21/2024 2:30 PM CDT [facility] HCT 42.8 37.0 - 52.0 % 11/21/2024 2:30 PM CDT [facility] MCV 90.7 78.0 - 100.0 FL 11/21/2024 2:30 PM CDT [facility] MCH 28.4 27.0 - 31.0 PG 11/21/2024 2:30 PM CDT [facility] MCHC 31.3(L) 33.0 - 36.0 G/DL 11/21/2024 2:30 PM CDT [facility] RDW 15.7(H) 11.5 - 14.5 % 11/21/2024 2:30 PM CDT [facility] PLT 259 150 - 350 x10'3/uL 11/21/2024 2:30 PM CDT [facility] MPV 10.3 7.4 - 10.4 FL 11/21/2024 2:30 PM T [facility] DIFFERENTIAL TYPE AUTOMATED DIFFERENTIAL 11/21/2024 2:31 PM CDT [facility] NEUTROPHILS % 56.4 % 11/21/2024 2:31 PM CDT [facility] LYMPHOCYTES % 26.2 % 11/21/2024 2:31 PM CDT [facility] MONOCYTES % 9.6 % 11/21/2024 2:31 PM CDT [facility] EOSINOPHILS % 7.0 % 11/21/2024 2:31 PM CDT [facility] BASOPHILS % 0.6 % 11/21/2024 2:31 PM CDT [facility] IMMATURE GRANS % 0.2 % 11/21/2024 2:31 PM CDT [facility] ABS. NEUTROPHILS 3.00 1.60 - 8.30 x10'3/uL 11/21/2024 2:31 PM CDT [facility] ABS. LYMPHOCYTES 1.39 0.80 - 4.70 x10'3/uL 11/21/2024 2:31 PM CDT [facility] ABS. MONOCYTES 0.51 0.00 - 1.50 x10'3/uL 11/21/2024 2:31 PM CDT [facility] ABS. EOSINOPHILS 0.37 0.00 - 0.40 x10'3/uL 11/21/2024 2:31 PM CDT [facility] ABS. BASOPHILS 0.03 0.00 - 0.20 x10'3/uL 11/21/2024 2:31 PM CDT [facility] ABS. IMMATURE GRANULOCYTES 0.01 0.00 - 0.03 x10'3/uL 11/21/2024 2:31 PM CDT [facility] 11/21/2024 10:5 9 AM CDT Tirso Weber MD LABORATORY Final Result Performing Organization Address City/[facility]/ZIP Co de Phone Number [place] [address] [place] [address], [place] [phone] * VITAMIN D, 25 OH (11/21/2024 10:59 AM CDT) Pathologist [facility] VITAMIN D 25 HYDROXY TOTAL S/P/B 62.0 30 - 100 NG/ML 11/21/2024 3:47 PM CDT [facility] Comment: DEFICIENT <20 INSUFFICIENT 20-30 SUFFICIENT 30-100 11/21/2024 10:5 9 AM CDT Tirso Weber MD LABORATORY Final Result Performing Organization Address City/[facility]/ZIP Co de Phone Number [address] [address], * (ABNORMAL) CK (CPK) (11/21/2024 10:59 AM CDT) Pathologist [facility] CPK 409(H) 39 - 308 U/L 11/21/2024 8:11 PM CDT [facility] 11/21/2024 10:5 9 AM CDT Tirso Weber MD LABORATORY Final Result [facility] [address] [place] [address], [id number] from Last 3 Months Insurance [facility] Care Teams Time Stamp Assembler Relationship Specialty Start Date End Date Tirso Weber MD [address] [place] [address] PCP - General 08/15/15
--- OUTSIDE RECORDS SUMMARY | 2025-01-30 02:40 | XMS_ITS | Clinical Summary ---
Author Organization [facility] Address [address] [place] [address] Care Team Providers Care Auto Rental Clerk Name Role Phone Tirso Weber MD Primary Care Provider [phone] Alfred Rangel MD Unavailable [phone] Allergies No known active allergies Medications amitriptyline (ELAVIL) 10 mg tablet TAKE 1 TABLET(10 MG) BY MOUTH EVERY NIGHT AT BEDTIME 2 Active aspirin 81 mg enteric coated tablet Take 1 tablet (81 mg total) by mouth daily Active Bifidobacteriu m infantis (Align) 4 mg capsule Take 1 capsule (4 mg total) by mouth daily 5 Active docosahexaenoi c acid-epa 120-180 mg capsule Take 2,000 mg by mouth 2 (two) times a day Active simvastatin (ZOCOR) 40 mg tablet Take by mouth daily 1 Active traMADoL (ULTRAM) 50 mg tablet Take 1 tablet (50 mg total) by mouth Active clonazePAM (KlonoPIN) 2 mg tabletIndicati ons:PLMD (periodic limb movement disorder) TAKE 1 TABLET(2 MG) BY MOUTH EVERY NIGHT 30 tablet 3 5 Active clonazePAM (KlonoPIN) 2 mg tabletIndicati ons:PLMD (periodic limb movement disorder) Take 1 tablet (2 mg total) by mouth nightly 30 tablet 3 5 01/23/20 25 Discontinued Active Problems Problem Noted Date Diagnosed Date Pituitary cyst 07/21/2023 Assessment & Plan (07/21/2023 10:40 AM ALLIANCE CONSULTANT): Incidental finding, without any compressive symptoms. There [...] year. Assessment & Plan (08/11/2023 3:27 PM ALLIANCE CONSULTANT): PLMS are under control with Klonopin 2 mg at bedtime. Assessment & Plan (08/05/2022 2:22 PM ALLIANCE CONSULTANT): PLMS are under control with Klonopin 2 mg at bedtime. He will follow-up with me in 1 year. Assessment & Plan (07/29/2021 3:33 PM ALLIANCE CONSULTANT): Patient will continue with Klonopin 2 mg p.o. at bedtime. Snoring 07/29/2021 Assessment & Plan (08/30/2024 3:39 PM CDT): The patient will continue positional therapy. He is on Elavil as ordered by another physician. Assessment & Plan (08/11/2023 3:28 PM ALLIANCE CONSULTANT): His snoring is not disturbing his sleep and he is practicing positional therapy. Assessment & Plan (08/05/2022 2:22 PM ALLIANCE CONSULTANT): His snoring is not disturbing his sleep and he is practicing positional therapy. Assessment & Plan (07/29/2021 3:29 PM ALLIANCE CONSULTANT): The patient will continue with positional therapy [...] on file Legal Sex Male 3:58 AM ALLIANCE CONSULTANT Gender Identity Not on file Sexual Orientation [...] 11/05/2011 Well Visit 65+ 2023 Covid-19 Vaccine (2023-2 5 season) 2024 09/09/2020, 08/20/2020 Influenza Vaccine (#1) 2025 , 03/27/2020, 04/21/2019, Additional history exists Insurance [employer] OPEN ACCESS [facility] MEDICARE ADVANTAGE [facility] Care Teams Auto Rental Clerk Relationship Specialty Start Date End Date Tirso Weber MD [address] [place] [address] PCP - General 07/21/19 Alfred Rangel MD [address] [place] [address] Referring Physician Neurology 10/15/23
--- OUTSIDE RECORDS SUMMARY | 2025-01-30 02:40 | XMS_ITS | Encounter Summary ---
Author Organization [facility] Address [address] [place] [address] Care Team Providers Care Regional Commercial Sales Manager Name Role Phone Tirso Weber MD Primary Care Provider [phone] Reason for Visit * Reason Comments Lab (SCAN) Encounter Details Date Type Department Care Team (Latest Contact Info) Description 01/19/2025 Scan HEALTH INFO SRVCS Scanned, Doc [facility] Lab (SCAN) Social History Tobacco Use Types Packs/Day Years [...] AM CDT documented as of this encounter Plan of Treatment Upcoming Encounters Date Type Department Care Team (Late st Contact Info) Description 10/18/2025 8:40 AM CDT Office Visit [facility] Medical Group Multispecialty Care - [address], [address] [place] [phone] Casey Veras MD [address] [place] [address] 11/22/2025 9:40 AM CDT Office Visit [facility] Family & Internal Medicine - [address] [address] Tirso Weber MD [address] [place] [address] 12/04/2025 10:00 AM CDT Office Visit [facility] Multispecialty Care - [facility] [address] [facility], [address] [place] [address] Alfred Rangel MD [address] [place] [address] documented as of this encounter Procedures Procedure Name Priority Date/Time Associated Diagnosis Comments OUTSIDE PT/INR (SCAN ORDER) 01/19/2025 OUTSIDE LAB (SCAN ORDER) 01/19/2025 OUTSIDE LAB (SCAN ORDER) 01/19/2025 OUTSIDE LAB (SCAN ORDER) 01/19/2025 documented in this encounter Results * OUTSIDE PT/INR (SCAN ORDER) (01/19/2025) 01/19/2025 [facility] Scanned SCANNING Final Resu lt * OUTSIDE LAB (SCAN ORDER) (01/19/2025) 01/19/2025 [facility] Scanned SCANNING Final Resu lt * OUTSIDE LAB (SCAN ORDER) (01/19/2025) 01/19/2025 [employer] [facility] Scanned SCANNING Final Resu lt * OUTSIDE LAB (SCAN ORDER) (01/19/2025) 01/19/2025 us [facility] Scanned SCANNING Final Resu lt documented in this encounter Visit Diagnoses Not on filedocumented in this encounter Additional Health Concerns Assessment Noted Time PHQ-9 Depression Total Score: 0 05/27/20 21 11:13 AM PHYSICIAN UNDERWRITER documented as of this encounter Care Teams Regional Commercial Sales Manager Relationship Specialty Start Date End Date Tirso Weber MD [address] [place] [address] PCP - General 08/15/15 documented as of this encounter
--- OUTSIDE RECORDS SUMMARY | 2025-01-30 02:40 | XMS_ITS ---
Author Organization [facility] Address [address] [place], [place] [id number] Care Team Providers Care Medical Record Librarian Name Role Phone LARRY BROWN Unavailable [phone] Tirso Weber Unavailable Unavailable Allergies Allergen (clinical [...] Medicationsimvastatin 10 MG Oral Tablet *Reorder from [employer] for eRx and Interaction Alerts* 10/10/2012 Active clonazePAM 1 MG Oral Tablet ORAL clonazepam 1 MG Oral TabletOriginal Medicationclonazepam 1 MG Oral Tablet *Reorder from [employer] for eRx and Interaction Alerts* 10/10/2012 Active Amitriptyline & Diet Manage Pr Active Vital Signs Height 70.00 in 10/03/2024 Weight 185 lbs 10/03/2024 BMI 26.54 kg/m2 10/03/2024 Height-cm 177.80 cm 10/03/2024 Weight-kg 83.92 kg 10/03/2024 Encounters Encounter Location Date Provider Diagnosis [facility] [address] [place], [place] [id number] 10/03/2024 LARRY BROWN Metatarsalgia of right foot [...] Notes * CAMELIA RAIDOB:1960 (64 yo M)Acc No.[id number]:10/03/2024 Progress Notes Patient: CAMELIA CONNELLY Provider: Beni Brown DPM :1960 A ge:64 Y S ex:Male Date:10/03/2024 Address:[address] [place] [address] [place] [address] Subjective: * Chief Complaints: * 1 . [...] Medicationclonazepam 1 MG Oral Tablet *Reorder from [employer] for eRx and Interaction Alerts*, Taking Simvastatin 10 MG Oral Tablet ORAL , Notes to Pharmacist: simvastatin 10 MG Oral TabletOriginal Medicationsimvastatin 10 MG Oral Tablet *Reorder from [employer] for eRx and Interaction Alerts*, Medication List [...] X-RAY EXAM OF FOOT, Modifiers: RT , 33918 X-RAY EXAM OF FOOT, Modifiers: LT * Billing Information: * Visit Code: 66069 Office Visit, New Pt., Level 3. * Procedure Codes: 16178 X-RAY EXAM OF FOOT. Modifiers: RT 92758 X-RAY EXAM OF FOOT. Modifiers: LT * Electronic signature of LARRY BROWN DPM on 01/30/2025 at 02:40 AM CDT Sign off status: Pending * Provider: Beni Brown DPM Date: 10/03/2024 Generated for Jenni sargent/Jessica/[place] on: 0 01/30/2025 02:40 AM CDT History and Physical Notes * [...]
[2025-01-30] MEDS: LACTATED RINGERS 1,000 ML 30 ML IV CONT ×2 (07:00→12:07)
--- NOTE | 2025-01-30 07:11 | PM.IMHP ---
H&P: HPI History of Present Illness Date/Time: 01/30/25 07:11 Chief Complaint: 64 yr old male with adenocarcinoma of prostate. Here for robotic assist nerve sparing prostatectomy Narrative: see above. Review of Systems Review of Systems: All systems reviewed & are unremarkable except as noted in HPI and below PMFSH Social History Social History Smoking status: Never smoker Alcohol intake: current Drinks per week: 14 Living arrangements: alone Spiritual care concerns: No Meds Home Medications and Allergies Home Medications ?Medication ?Instructions ?Recorded ?Confirmed ?Type Bifidobacterium longum 10 million 10 cell PO DAILY 01/19/25 01/19/25 History cell capsule (Align (B.longum)) acetaminophen 500 mg tablet 1,000 mg PO Q6H PRN pain 01/19/25 01/19/25 History (Acetaminophen Extra Strength) amitriptyline 10 mg tablet 10 mg PO HS 01/19/25 01/19/25 History antiarthritic combination no.2 900 900 mg PO DAILY 01/19/25 01/19/25 History mg tablet (glucosamine-chondroitin) ascorbic acid (vitamin C) 500 mg 500 mg PO DAILY 01/19/25 01/19/25 History capsule aspirin 81 mg tablet,delayed 81 mg PO DAILY 01/19/25 01/19/25 History release (Adult Low Dose Aspirin) cholecalciferol (vitamin D3) 25 1,000 unit PO DAILY 01/19/25 01/19/25 History mcg (1,000 unit) capsule clonazepam 2 mg tablet 2 mg PO HS 01/19/25 01/19/25 History fiber 2 tablet PO BID 01/19/25 01/19/25 History dwosilur-wr-aobdt 300 mcg-K 60 1 tablet PO DAILY 01/19/25 01/19/25 History mcg-lycop 600 mcg-lutein 300 mcg tablet (Centrum Silver Men) omega 8-fru-gwb-fish oil 1,000 mg 1 cap PO DAILY 01/19/25 01/19/25 History (120 mg-180 mg) capsule (Fish Oil) simvastatin 40 mg tablet 40 mg PO HS 01/19/25 01/19/25 History turmeric 400 mg capsule 400 mg PO DAILY 01/19/25 01/19/25 History Allergies Allergy/AdvReac Type Severity Reaction Status Date / Time No Known Allergies Allergy Verified 01/19/25 08:12 Exam Const: General: cooperative and comfortable Resp: Effort & Inspection: normal respiratory effort Cardio: Rate: regular rate Rhythm: regular rhythm GI: GI Palp: Yes Soft to palpation Assessment and Plan Assessment and plan (1) Adenocarcinoma of prostate: Code(s): C61 - Malignant neoplasm of prostate Status: Acute Assessment and Plan: Robotic assist nerve sparing prostatectomy with possible plnd
--- NOTE | 2025-01-30 07:22 | WPDHPUPDATE1 ---
History and Physical Update Update Date/Time: 01/30/25 07:22 History and Physical has been reviewed, including an updated exam of the patient. There are NO changes in the patient's condition. Risks, benefits, and alternatives have been discussed and questions answered. Patient agrees to proceed with procedure.
--- NOTE | 2025-01-30 07:23 | P.PNAN_ITS ---
Anes - Initial Pre Proc Eval Procedure: Operation Date: 01/30/25 07:30 Proposed Procedures p Robotic Laparoscopic Prostatectomy, Possible Bilateral Pelvic Lymph Node Dissection - Eriberto Anderson MD Date/Time: 01/30/25 07:23 Surgeon: Eriberto Anderson MD Pre Op Diagnosis: prostate CA Patient Data Age: 64 Gender: M Height: 1.78 m Weight: 90.9 kg Last Vital Signs Temp 97.7 F 01/19/25 08:25 Pulse 56 L 01/19/25 08:25 Resp 16 01/19/25 08:25 BP 128/75 01/19/25 08:25 Pulse Ox 98 01/19/25 08:25 O2 Del Method Room Air 01/19/25 08:25 Allergies Allergy/AdvReac Type Severity Reaction Status Date / Time No Known Allergies Allergy Verified 01/19/25 08:12 Home Medications ?Medication ?Instructions ?Recorded ?Confirmed ?Type Bifidobacterium longum 10 million 10 cell PO DAILY 01/19/25 01/19/25 History cell capsule (Align (B.longum)) acetaminophen 500 mg tablet 1,000 mg PO Q6H PRN pain 01/19/25 01/19/25 History (Acetaminophen Extra Strength) amitriptyline 10 mg tablet 10 mg PO HS 01/19/25 01/19/25 History antiarthritic combination no.2 900 900 mg PO DAILY 01/19/25 01/19/25 History mg tablet (glucosamine-chondroitin) ascorbic acid (vitamin C) 500 mg 500 mg PO DAILY 01/19/25 01/19/25 History capsule aspirin 81 mg tablet,delayed 81 mg PO DAILY 01/19/25 01/19/25 History release (Adult Low Dose Aspirin) cholecalciferol (vitamin D3) 25 1,000 unit PO DAILY 01/19/25 01/19/25 History mcg (1,000 unit) capsule clonazepam 2 mg tablet 2 mg PO HS 01/19/25 01/19/25 History fiber 2 tablet PO BID 01/19/25 01/19/25 History xibjjwhs-vx-rsnup 300 mcg-K 60 1 tablet PO DAILY 01/19/25 01/19/25 History mcg-lycop 600 mcg-lutein 300 mcg tablet (Centrum Silver Men) omega 3-dnd-kic-fish oil 1,000 mg 1 cap PO DAILY 01/19/25 01/19/25 History (120 mg-180 mg) capsule (Fish Oil) simvastatin 40 mg tablet 40 mg PO HS 01/19/25 01/19/25 History turmeric 400 mg capsule 400 mg PO DAILY 01/19/25 01/19/25 History Patient hx anesthesia problems: none Family hx anesthesia problems: none Results Review: All pre-operative results and documents have been reviewed as part of the pre- operative evaluation. [facility] Social History Social History Smoking status: Never smoker Alcohol intake: current Drinks per week: 14 Living arrangements: alone Spiritual care concerns: No Anes - Eval Final PreProcedure Day of Procedure 01/30/25 07:23 Patient weight: normal Heart: regular rate and rhythm Lungs: clear to auscultation Airway: Mallampati scale class II Neurological: alert and oriented Last oral intake: >/= 8 hours ASA classification: III Emergent: no Anesthetic plan: proceed Anesthesia type and monitoring: general ETT and standard monitoring Results Review: All pre-operative results and documents have been reviewed as part of the pre- operative evaluation. Informed Consent: The patient's anesthetic plan and its attendant risks and benefits were discussed with the patient/family/POA. Questions were solicited and answers provided to the satisfaction of the patient/family/POA.
[2025-01-30] MEDS: ceFAZolin 2 GM in SODIUM CHLORIDE 0.9% IV 50 ML 100 ML IVPB (07:30)
[2025-01-30] MEDS: BUPivacaine HCL 0.5% 10 ML AMP 30 ML INFILTRATE (08:19)
--- NOTE | 2025-01-30 10:36 | S_PTH ---
PATIENT: Eliud Paiz LOC: [facility] U#:[id number] AGE/SX: 64/M ROOM: RE01/30/[address]: Eriberto Anderson, : 1960 BED: DIS: 01/31/2025 SPEC #: [id number] RECD: 01/30/25 12:30 STATUS: YOBANI REBarrington #: [id number] NAGI: 01/30/25 10:[address]: Monica,Eriberto Mason DEPT: [facility] Surgical RECD BY: Bay Jimenez ENTERED: 01/30/25 12:31 SP TYPE: Surgical OTHR DR: Tirso WeberMD Tissues: A - Biopsy B - Biopsy C - Prostate Procedures: Hematoxylin and Eosin Stain Gross and Microscopic Level 4 Gross and Microscopic Level 6
[2025-01-30] MEDS: KETOROLAC 15 MG/ML VIAL (*BKC) IV PUSH (11:49)
--- NOTE | 2025-01-30 11:53 | P.OP_ITS ---
Procedure Note - Detailed Date of Procedure 01/30/25 Pre-op Diagnosis prostate CA Post-op Diagnosis Same Procedure Performed Robotic assisted nerve-sparing prostatectomy with right pelvic lymph node dissection Surgeon Eriberto Anderson MD Anesthesia General Description of Procedure patient was taken to the operative suite correctly identified. Once anesthesia was obtained was placed in dorsal lithotomy position and prepped and draped usual sterile fashion. Sixteen Micronesian Rendon was placed. Supraumbilical incision was made and carried down to the rectus fascia. Veress needle was inserted and the abdomen insufflated 15 mmHg pressure. Camera port was placed under direct vision. Working ports were placed in appropriate locations. Robot was docked after patient was placed in Trendelenburg position. He had a quite a bit of adhesions along the right and left pelvic floor area. These were taken down. Posterior approach was then taken. Seminal vesicles were dissected out their entirety. Vas were transected. Plane between the prostate and rectum was developed. Bladder was taken down. Space of Retzius was developed bilaterally in the prostatic. Transected. Dorsal venous complex was isolated and ligated using 0 Vicryl in secured to the pubic bone. Bladder was then opened. Posterio r bladder was also opened. The prior down IVs was incised and the ampulla was of the vas and seminal vesicles were brought out. Pedicles were clipped. Bilateral nerve-sparing was performed. Dorsal venous complex was transected. Urethra was also transected. This was placed in an Endo-Catch bag. Right pelvic lymph node dissection was performed the standard fashion. Clips were placed proximally and distally on the lymph node packet. Boundaries were obturator nerve, external iliac vein, Duane's ligament, and bifurcation of the vessels. Bladder neck was then reconstructed with V lock at the 3 and 6 o'clock position. Anastomosis was performed using a V lock suture in a running fashion. There was a good approximation of mucosa. Sixteen Micronesian Rendon was placed inflated with 10 cc in the balloon. The bladder was filled with 200 cc. No evidence of extravasation. SANDI drain was brought out through a separate stab incision. robot was undocked. Midline incision was extended and the Endo-Catch bag was brought out. Rectus fascia closed using 0 Vicryl running fashion. Subcuticular stitches were placed using Monocryl. All lap count needle count sponge counts were correct. Patient tolerated procedure well without complications and was taken recovery stable condition. This completes dictation. Please send a copy of op note to my office Estimated Blood Loss 50 Drains Yes Packing No Pathology Yes Complications No immediate complications Condition Stable Disposition PACU
[2025-01-30] MEDS: fentaNYL CITRATE INJ (*CRX) 100 MCG/2 ML VIAL 25 MCG IV PUSH (12:50)
--- NOTE | 2025-01-30 14:00 | SUR.PHASEI ---
Patient meets PACU discharge criteria, unit bed unavailable at this time. Patient placed in extended recovery status.
[2025-01-30] MEDS: DOCUSATE SODIUM 100 MG CAPSULE PO (15:59)
[2025-01-30] MEDS: LACTATED RINGERS 1,000 ML 125 ML IV CONT ×2 (15:59→23:18)
--- NOTE | 2025-01-30 16:05 | ADMGEN ---
This patient, Eliud Paiz, was admitted to [facility] Surg Room 312-01. Patient/family oriented to hospital policies and general routines including ID bracelet, bed and alarms, visiting hours, pain management, procedures, bathroom and other care routines, personal items, smoking policy, room service/diet, and visiting hours. Information on how to activate the Rapid Response Team has been discussed. Patient/Family are encouraged to report perceived risks to care and to ask questions if they do not understand what they are told or what they should do.
[2025-01-30] MEDS: HYDROcodone/acetaminophen (*CRX) 5-325 MG TABLET 1 TAB PO (18:45)
[2025-01-30] MEDS: AMITRIPTYLINE HCL 10 MG TABLET PO (21:03)
[2025-01-30] MEDS: SIMVASTATIN 20 MG TABLET 40 MG PO (21:03)
[2025-01-31 03:37] VITALS: BP 115/69; PULSE 64; RESP 16; TEMP 36.2; O2SAT 94
[2025-01-31] MEDS: HYOSCYAMINE SULFATE 0.125 MG TABLET SUBLINGUAL (03:44)
[2025-01-31] MEDS: HYDROcodone/acetaminophen (*CRX) 5-325 MG TABLET 1 TAB PO ×2 (06:01→13:17)
[2025-01-31] MEDS: LACTATED RINGERS 1,000 ML 125 ML IV CONT (06:17)
[2025-01-31 07:18] LABS: Hematocrit 36.8 % (42.0-52.0); Hemoglobin 11.7 g/dL (14.0-18.0)
[2025-01-31 07:40] LABS: Anion Gap 4 mmol/L (4-12); Blood Urea Nitrogen 15 mg/dL (9-20); Calcium 8.6 mg/dL (8.4-10.2); Carbon Dioxide 25 mmol/L (22-30); Chloride 106 mmol/L (98-107); Estimated CRCL calculation 63 ml/min; Estimated Glomerular Filt Rate > 60; Glucose 94 mg/dL (65-110); Potassium 3.9 mmol/L (3.4-5.0); Sodium 135 mmol/L (137-145)
[2025-01-31 08:00] VITALS: O2SAT 100
[2025-01-31 08:46] VITALS: BP 116/62; PULSE 98; RESP 16; TEMP 37.1; O2SAT 100
[2025-01-31] MEDS: DOCUSATE SODIUM 100 MG CAPSULE PO (09:27)
--- NOTE | 2025-01-31 12:39 | WPDUROPN2 ---
Progress Note: A&P Assessment and Plan (1) Adenocarcinoma of prostate: Code(s): C61 - Malignant neoplasm of prostate Status: Acute Assessment and Plan: Final path is pending at this time. Discharged home with Rendon catheter. Follow-up next week after catheter cystogram. Subjective Subjective Date/Time Seen: 01/31/25 12:39 Interval history: Doing well postoperative day 1. No significant complaints. Ambulated last night. Resting comfortably in the chair at this time. Review of Systems Review of Systems: All systems reviewed & are unremarkable except as noted in HPI and below Exam Const: General: cooperative and comfortable Resp: Effort & Inspection: normal respiratory effort Cardio: Rate: regular rate Rhythm: regular rhythm Urinary Catheter: Urinary Catheter: patent and draining and urine clear Objective Data Vital Signs Vital Signs: Vital Signs - 24 hr 01/30/25 12:50 01/30/25 13:05 01/30/25 13:20 Temperature Pulse Rate 66 58 L 57 L Respiratory Rate 12 12 13 Blood Pressure 118/77 119/74 122/67 Pulse Oximetry 95 97 97 Oxygen Delivery Nasal Cannula Nasal Cannula Nasal Cannula Oxygen Flow Rate 2 2 2 01/30/25 13:35 01/30/25 13:50 01/30/25 14:00 Temperature Pulse Rate 54 L 61 53 L Respiratory Rate 10 L 17 12 Blood Pressure 118/72 120/73 125/75 Pulse Oximetry 97 98 97 Oxygen Delivery Room Air Nasal Cannula Nasal Cannula Oxygen Flow Rate 2 2 01/30/25 14:30 01/30/25 15:00 01/30/25 15:15 Temperature 36.4 C L Pulse Rate 56 L 53 L 55 L Respiratory Rate 14 14 16 Blood Pressure 124/72 115/77 122/71 Pulse Oximetry 98 95 100 Oxygen Delivery Room Air Room Air Oxygen Flow Rate 01/30/25 15:30 01/30/25 16:00 01/30/25 17:00 Temperature 36.4 C 36.5 C 36.5 C Pulse Rate 61 64 59 L Respiratory Rate 16 14 14 Blood Pressure 123/75 131/67 118/75 Pulse Oximetry 100 99 99 Oxygen Delivery Oxygen Flow Rate 01/30/25 20:00 01/30/25 20:23 01/30/25 23:34 Temperature 36.4 C 36.3 C L Pulse Rate 68 68 66 Respiratory Rate 16 16 18 Blood Pressure 119/73 115/67 Pulse Oximetry 98 98 95 Oxygen Delivery Room Air Oxygen Flow Rate 01/31/25 03:37 01/31/25 08:00 01/31/25 08:46 Temperature 36.2 C L 37.1 C Pulse Rate 64 98 Respiratory Rate 16 16 Blood Pressure 115/69 116/62 Pulse Oximetry 94 100 100 Oxygen Delivery Room Air Oxygen Flow Rate Intake/Output Intake/Output: Intake & Output 01/28/25 01/29/25 01/30/25 01/31/25 23:59 23:59 23:59 23:59 Intake Total 1904.6 2212.9 Output Total 315 1405 Balance 1589.6 807.9 Meds/Results Medications: Active Medications Generic Name Dose Route Start Last Admin Trade Name Freq PRN Reason Stop Dose Admin Hydrocodone Bitart/Acetaminophen 1 tab 01/30/25 15:01 01/31/25 06:01 Hydrocodone/Acetaminophen (*Crx) 5-325 Mg Tablet PO 1 tab Q6H PRN Administration Pain Rated 1-3 Hydrocodone Bitart/Acetaminophen 2 tab 01/30/25 15:01 Hydrocodone/Acetaminophen (*Crx) 5-325 Mg Tablet PO Q6H PRN Pain Rated 4-6 Amitriptyline HCl 10 mg 01/30/25 21:00 01/30/25 21:03 Amitriptyline Hcl 10 Mg Tablet PO 10 mg HS MEG Administration Docusate Sodium 100 mg 01/30/25 17:00 01/31/25 09:27 Docusate Sodium 100 Mg Capsule PO 100 mg BID MEG Administration Hyoscyamine 0.125 mg 01/30/25 15:01 01/31/25 03:44 Hyoscyamine Sulfate 0.125 Mg Tablet SUBLINGUAL 0.125 mg Q4H PRN Administration Bladder Spasm Lactated Ringer's 1,000 mls @ 125 mls/hr 01/30/25 15:01 01/31/25 06:17 Lr - Lactated Ringers Iv IV CONT 125 mls/hr .Q8H MEG Administration Ketorolac Tromethamine 15 mg 01/30/25 15:01 Ketorolac 15 Mg/Ml Vial (*Bkc) IV PUSH 01/31/25 15:00 Q6H PRN Pain Rated 4-6 Levofloxacin 500 mg 01/31/25 09:00 01/31/25 09:27 Levofloxacin 500 Mg Tablet PO 500 mg DAILY MEG Administration Morphine Sulfate 1 mg 01/30/25 15:01 Morphine Sulfate (*Crx) 2 Mg/Ml Inj IV PUSH Q2H PRN Pain Rated 7-10 Naloxone HCl 0.1 mg 01/30/25 15:01 Naloxone Hcl 0.4 Mg/Ml Vial IV PUSH Q2M PRN Opiate Reversal Ondansetron HCl 4 mg 01/30/25 15:01 Ondansetron Inj 4 Mg/2 Ml Vial IV PUSH Q6H PRN Nausea And Vomiting Simvastatin 40 mg 01/30/25 21:00 01/30/25 21:03 Simvastatin 20 Mg Tablet PO 40 mg HS MEG Administration Labs Labs: Laboratory Results - last 24 hr 01/31/25 07:07 Hgb 11.7 L Hct 36.8 L Sodium 135 L Potassium 3.9 Chloride 106 Carbon Dioxide 25 Anion Gap 4 BUN 15 Creatinine 1.06 Estim Creat Clear Calc 63 Estimated GFR > 60 Glucose 94 Calcium 8.6
--- NOTE | 2025-01-31 12:46 | P.DS_ITS ---
DS: Admitting Diagnosis Discharge Date 01/31/2025 Admitting Diagnosis Adenocarcinoma prostate DS: Discharge Diagnosis Discharge Diagnosis (1) Adenocarcinoma of prostate: Code(s): C61 - Malignant neoplasm of prostate Status: Acute DS: Summary Hospital Course Hospital Course: Patient had an uneventful robotic assisted nerve-sparing prostatectomy with right pelvic lymph node dissection. Postoperatively he has done well. SANDI is removed prior to discharge. He is tolerating a diet and ambulating. He will follow-up in a week's time after catheter cystogram. Time Spent with Patient Time attestation: Total time spent providing and/or coordinating discharge services: DS: Data Data Completed and Pending Pending studies at discharge: Pending at discharge 01/30/25 10:36 Surgical [PTH] Routine Surgical [PTH] Routine Labs on day of discharge: Labs from last 24 hours 01/31/25 07:07 Hgb 11.7 L Hct 36.8 L Sodium 135 L Potassium 3.9 Chloride 106 Carbon Dioxide 25 Anion Gap 4 BUN 15 Creatinine 1.06 Estim Creat Clear Calc 63 Estimated GFR > 60 Glucose 94 Calcium 8.6 Discharge Plan Discharge Patient Disposition: Home Discharge Instructions: Discharged home with Rendon catheter. Instructed in use of leg bag and catheter care Patient Language: [place] Islander Stand Alone Forms: General Discharge Instructions Discharge Medications: New sulfamethoxazole-trimethoprim [Bactrim DS] 800-160 mg tablet 1 tablet PO DAILY Qty: 10 0RF tramadol 50 mg tablet 50 mg PO Q6H PRN (Reason: pain) Qty: 20 0RF oxybutynin chloride 5 mg tablet 5 mg PO BID PRN (Reason: bladder spasms) Qty: 30 0RF Rx Instructions: Take as needed for bladder spasms Continued simvastatin 40 mg tablet 40 mg PO HS amitriptyline 10 mg tablet 10 mg PO HS clonazepam 2 mg tablet 2 mg PO HS Patient Comments: FOR RESTLESS LEG [employer]NDROME omega 2-psl-vof-fish oil [Fish Oil] 1,000 (120-180) mg capsule 1 cap PO DAILY glucosamine-chondroitin 900 mg tablet 900 mg PO DAILY Align (B.longum) 10 million cell capsule 10 cell PO DAILY fiber Tablet,Chewable 2 tablet PO BID Centrum Silver Men 214-51-447-300 mcg tablet 1 tablet PO DAILY ascorbic acid (vitamin C) 500 mg capsule 500 mg PO DAILY cholecalciferol (vitamin D3) 25 mcg (1,000 unit) capsule 1,000 unit PO DAILY acetaminophen [Acetaminophen Extra Strength] 500 mg tablet 1,000 mg PO Q6H PRN (Reason: pain) aspirin [Adult Low Dose Aspirin] 81 mg tablet,delayed release (DR/EC) 81 mg PO DAILY turmeric 400 mg capsule 400 mg PO DAILY
== END 2025-01-31 14:40 | disposition home or self-care (01) ==
LOC: ANHSURGERY 06:01 → ANH3MEDSUR 15:13
PROVIDERS: PCP Internal Medicine; Visit Provider Urology
PROC: 0VT04ZZ Resection of Prostate, Percutaneous Endoscopic Approach (ICD-10-PCS; CPT 55867; principal; 2025-01-30 07:30)
DX: C61 Malignant neoplasm of prostate (principal); K66.0 Peritoneal adhesions (postprocedural) (postinfection); Z79.82 Long term (current) use of aspirin
CPT/HCPCS: 55866; 38571; S2900; 36415; 80048; 85014; 85018; 88305; 88309; J0690; A9270; J1100; J1171; J1885; J2003; J2250; J2405; J2704; J3010; J7030; J7120; Q9968

== ENCOUNTER 2025-02-08 12:22 | Outpatient (CLI) | payer MEDICARE, SELFPAY ==
--- OUTSIDE RECORDS SUMMARY | 2024-10-03 09:00 | XMS_ITS ---
Author Organization [facility] Address [address] [place], [place] [address] Care Team Providers Care Sr. Vendor Management Associate Name Role Phone LARRY BROWN Unavailable [phone] Tirso Weber Unavailable Unavailable Allergies Allergen (clinical drug ingredient) Drug/Non Drug Allergy documented on EMR Reaction Allergy Type Onset Date Status ibuprofen Ibuprofen Unknown Drug Allergy 10/10/2012 active Non-steroidal anti-inflammatory agent (FN) NSAIDs Unknown Drug Allergy Active REASON FOR VISIT *Foot Pain, burning Medications Medication SIG (Take, Route, Frequency, Duration) Notes Start Date End Date Status Simvastatin 10 MG Oral Tablet ORAL simvastatin 10 MG Oral TabletOriginal Medicationsimvastatin 10 MG Oral Tablet *Reorder from [employer] for eRx and Interaction Alerts* 10/10/2012 Active clonazePAM 1 MG Oral Tablet ORAL clonazepam 1 MG Oral TabletOriginal Medicationclonazepam 1 MG Oral Tablet *Reorder from [employer] for eRx and Interaction Alerts* 10/10/2012 Active Amitriptyline & Diet Manage Pr Active Vital Signs Height 70.00 in 10/03/2024 Weight 185 lbs 10/03/2024 BMI 26.54 kg/m2 10/03/2024 Height-cm 177.80 cm 10/03/2024 Weight-kg 83.92 kg 10/03/2024 Encounters Encounter Location Date Provider Diagnosis [facility] [address] [place], [place] [id number] 10/03/2024 LARRY BROWN Metatarsalgia of right foot M77.41 ; Metatarsalgia of left foot M77.42 ; Other eccrine sweat disorders L74.8 ; Pain in right foot M79.671 and Left foot pain M79.672 Assessments Encounter Date Diagnosis (ICD Code) Assessment Notes Treatment Notes Treatment Clinical Notes Section Notes 10/03/2024 Metatarsalgia of right foot (ICD-10 - M77.41) 10/03/2024 Metatarsalgia of left foot (ICD-10 - M77.42) 10/03/2024 Other eccrine sweat disorders (ICD-10 - L74.8) 10/03/2024 Pain in right foot (ICD-10 - M79.671) 10/03/2024 Left foot pain (ICD-10 - M79.672) 10/03/2024 Other Pyrogallic Acid: Lesions were debrided and pyrogallic acid was applied to the area. Patient was advised to keep dry for 3 days. Plan Of Treatment Treatment Notes Assessment Notes Other Pyrogallic Acid: Les ions were debrided and pyrogallic acid was applied to the area. Patient was advised to keep dry for 3 days. Progress Notes * CAMELIA RAIDOB:1960 (64 yo M)Acc No.[id number]:10/03/2024 Progress Notes Patient: CAMELIA CONNELLY Provider: Beni Brown DPM :1960 A ge:64 Y S ex:Male Date:10/03/2024 Address:[address] [place] [address] [place] [address] Subjective: * Chief Complaints: * 1 . *Foot Pain, burning. * HPI: H PI: New Complaint P atient was last seen in our practice over three years ago. Patient complains of pain on the medial side of both feet. Patient also states they have a burning sensation on the top of both feet as well as cramps throughout the night. M A: IG. * Medical History: A rthritis, Back Trouble. * Surgical History: k idney transplant . * Family History: F ather: PRN - Father: :: Hypertension,,known absent , :: Diabetes,,known absent , :: Heart Disease < 55 yrs,,known absent . M other: PRN - Mother: :: Diabetes,,known absent , :: Arthritis,,known absent , :: Cancer,,known absent , :: Heart Disease < 55 yrs,,known absent , :: Hypertension,,known absent . B rother: SIB - Brother: :: known absent , :: Arthritis,,known absent . Sister: SIB - Sister: :: Hypertension,,known absent , :: Arthritis,,known absent . * Social History: M igrated Social History: M igrated Social History: Alcohol intake : , History of tobacco use : , Smoking Status : Never smoked. * Medications: T aking Amitriptyline & Diet Manage Pr , Taking clonazePAM 1 MG Oral Tablet ORAL , Notes to Pharmacist: clonazepam 1 MG Oral TabletOriginal Medicationclonazepam 1 MG Oral Tablet *Reorder from [employer] for eRx and Interaction Alerts*, Taking Simvastatin 10 MG Oral Tablet ORAL , Notes to Pharmacist: simvastatin 10 MG Oral TabletOriginal Medicationsimvastatin 10 MG Oral Tablet *Reorder from [employer] for eRx and Interaction Alerts*, Medication List reviewed and reconciled with the patient * Allergies: I buprofen: Allergy - Onset Date 10/10/2012, NSAIDs. Objective: * Vitals: S hoe Size: 10.5, Wt:185lbs, Wt-k.92 kg, Ht: 70.00 in, Ht-cm: 177.80 cm, BMI:26.54Index, Body Surface Area: 2.03. * Examination: C onstitutional: Constitutional T he patient is awake, alert, well developed, well groomed and well nourished. . D ermatologic: Skin findings: S kin is warm, dry, supple with no breaks in the skin. . Nail pathology: N ails 1-5 bilateral are normal in appearance and thickness. No discoloration. . Ulcer: T here is no evidence of ulceration noted at this time . Hyperkeratotic Skin Lesion T here is evidence of hyperkeratotic skin lesions present on the plantar aspect of the 1st metatarsal head bilateral . ? M usculoskeletal: Muscle Strength M uscle strength is 5/5 in regards to dorsiflexion, plantarflexion, inversion, and eversion in bilateral lower extremities. . Foot Structure T he foot structure is noted to be normal bilaterally . Pain on palpation T here is no pain on palpation . Gait T here is normal gait noted . N eurologic: Muscle power: 5 /5 bilaterally . Gross sensation G ross sensation is intact to light touch. . V ascular: Dorsalis pedis pulse: 2 /4 bilateral . Posterior tibial pulse: 2 /4 bilaterally . Capillary refill: l ess than 3 seconds bilaterally . Temperature gradient: w ithin normal limits . ? X -Ray: LEFT FOOT T here is no evidence of fracture, dislocation, or other osseous lesions. . RIGHT FOOT T here is no evidence of fracture, dislocation, or other osseous lesions. . Assessment: * Assessment: 1. M etatarsalgia of right foot - M77.41 (Primary) 2 . M etatarsalgia of left foot - M77.42 3 . O ther eccrine sweat disorders - L74.8 4 .?Pain in right foot - M79.671 5 . L eft foot pain - M79.672 Plan: * Treatment: * Immunizations: Immunization record has been reviewed and updated. * Procedure Codes: 7 3630 X-RAY EXAM OF FOOT, Modifiers: RT , 98424 X-RAY EXAM OF FOOT, Modifiers: LT * Billing Information: * Visit Code: 62823 Office Visit, New Pt., Level 3. * Procedure Codes: 57961 X-RAY EXAM [place] FO[place]. [place]ifiers: [place] [address] X-RAY EXAM OF FOOT. Modifiers: LT * Electronic signature of LARRY BROWN DPM on 02/08/2025 at 12:26 PM CDT Sign off status: Pending * Provider: Beni Brown DPM Date: 10/03/2024 Generated for Jenni Sutton/[place] on: 0 02/08/2025 12:26 PM CDT History and Physical Notes * HPI (History of Present Illness) Category Sub-Category Detail Notes Category Not es HPI New Complaint Patient was last seen in our practice over three years ago. Patient complains of pain on the medial side of both feet. Patient also states they have a burning sensation on the top of both feet as well as cramps throughout the night. MA: IG Examination Category Sub-Category Detail Notes Category Not es X-Ray LEFT FOOT There is no evid ence of fracture, dislocation, or other osseous lesions. RIGHT FOOT There is no evidence of fracture, dislocation, or other osseous lesions. Constitutional Constitutional The patient is a wake, alert, well developed, well groomed and well nourished. Dermatologic Skin findings: Skin is warm, dr y, supple with no breaks in the skin. Nail pathology: Nails 1-5 bilateral are normal in appearance and thickness. No discoloration. Ulcer: There is no evidence of ulceration noted at this time Hyperkeratotic Skin Lesion There is evid ence of hyperkeratotic skin lesions present on the plantar aspect of the 1st metatarsal head bilateral Musculoskeletal Muscle Strength Muscle strength is 5/5 in regards to dorsiflexion, plantarflexion, inversion, and eversion in bilateral lower extremities. Pain on palpation There is no pain on palpation Foot Structure The foot structure i s noted to be normal bilaterally Gait There is normal gait noted Neurologic Muscle power: 5/5 bilaterally Gross sensation Gross sensation is i ntact to light touch. Vascular Dorsalis pedis pulse: 2/4 bilateral Posterior tibial pulse: 2/4 bilaterally Capillary refill: less than 3 seconds bilaterally Temperature gradient: within normal limi ts
--- NOTE | ~2025-02-08 | XR_ITS ---
EXAMINATION: CYSTOGRAM DATE: 02/08/2025 13:10 INDICATION: Prostate cancer post prostatectomy TECHNIQUE: Initial bench worker apprentice radiograph of the pelvis was performed. There was retrograde administration of Omnipaque 350 mixed with saline contrast into patient's existing Rendon catheter. Fluoroscopic images of the pelvis were obtained. A post-void image was also performed. Fluoroscopy exposure time was 0.6 minutes. A total of 24 fluoroscopic images and one overhead radiograph were obtained. Total DAP was 11.1 mGycm^2 FINDINGS: Body Stylist image demonstrates some surgical clips in the paravertebral left upper and lower quadrants consistent with prior left nephrectomy. V-shaped configuration at the base of the bladder consistent with prior prostatectomy. No evident leak at the cystourethral anastomosis. Severe lower lumbar spondylosis. IMPRESSION: No evident leak at the cystourethral anastomosis post prostatectomy. Reviewed, dictated and finalized at location A.
--- OUTSIDE RECORDS SUMMARY | 2025-02-08 12:26 | XMS_ITS | Encounter Summary ---
Author Organization [facility] Address [address] [place] [address] Care Team Providers Care Farm Equipment Mechanic Apprentice Name Role Phone Tirso Weber MD Primary Care Provider [phone] Reason for Visit * Reason Comments Lab (SCAN) Procedure (SCAN) Encounter Details Date Type Department Care Team (Late Contact Info) Description 01/30/2025 Scan HEALTH INFO [facility] Scanned, Doc Med Group Lab (SCAN); Procedure (SCAN) Social History Tobacco Use Types Packs/Day [...] Upcoming Encounters Date Type Department Care Team ([facility] Contact Info) Description 10/18/2025 8:40 AM CDT Office Visit [facility] - [address], [address] [place] [address] Casey Veras MD [address] [place] [address] 11/22/2025 9:40 AM CDT Office Visit [facility] - [place] [address] [place] [address] Tirso Weber MD [address] [place] [address] 12/04/2025 10:00 AM CDT Office Visit [facility] - [facility] [address] [facility], [address] [place] [address] Alfred Rangel MD [address] [place] [address] documented as of this encounter Procedures Procedure Name Priority Date/Time Associated Diagnosis Comments OUTSIDE LAB (SCAN ORDER) 01/30/2025 PROCEDURE GENERIC (SCAN ORDER) 01/30/2025 documented in this encounter Results * PROCEDURE GENERIC (SCAN ORDER) (01/30/2025) 01/30/2025 Standardized Safety [facility] Scanned SCANNING Final Resu lt * OUTSIDE LAB (SCAN ORDER) (01/30/2025) 01/30/2025 [facility] Scanned SCANNING Final Resu lt documented in this encounter Visit Diagnoses Not on filedocumented in this encounter Additional Health Concerns Assessment Noted Time PHQ-9 Depression Total Score: 0 05/27/20 21 11:13 AM WIRELESS FIELD TECHNICIAN documented as of this encounter Care Teams Farm Equipment Mechanic Apprentice Relationship Specialty Start Date End Date Tirso Weber MD [address] [place] [address] PCP - General 08/15/15 documented as of this encounter
--- OUTSIDE RECORDS SUMMARY | 2025-02-08 12:26 | XMS_ITS | Encounter Summary ---
Author Organization [facility] Address [address] [place] [address] Care Team Providers Care Resident Inspector Name Role Phone Tirso Weber MD Primary Care Provider [phone] Encounter Details Date Type Department Care Team (Late st Contact Info) Description 01/26/2020 Prep for Procedure [facility] One Day Services [place], [place] [id number] Cecil Jane MD 3 [facility] Brian [address] [place] [id number] Social History Tobacco Use Types Packs/Day Years [...] Description 10/18/2025 8:40 AM CDT Office Visit [facility] 3 [facility] [place], [address] [place] [phone] Casey Veras MD 3 [place] [address] 11/22/2025 9:40 AM CDT Office Visit [facility] [address] [address] Tirso Weber MD [address] [place] [address] 12/04/2025 10:00 AM CDT Office Visit [facility] [address] [facility] [place], [address] [place] [phone] Alfred Rangel MD 3 [place] [address] documented as of this encounter Results * PRE-SURGICAL/PRE-PROCEDURE CORONAVIRUS (COVID 19) (01/26/2020 9:00 AM CDT) CORONAVIRUS SARS COV 2 PCR (RESP) NOT DETECTED NOT DETECTED 01/30/2020 7:58 PM CDT [facility] [place] [facility] Comment: A Not Detected (negative) test [...] providers and patients using the following websites: https://www.[employer].WeGoOut/home/Covid-19/HCP/NAAT/fact-sheet2 https://www.[employer].WeGo[employer]/home/Covid-19/Patients/NAAT/ fact-sheet2 This test has been authorized by the FDA under an Emergency Use Authorization (EUA) for use by authorized laboratories. Due to the current public health emergency, [facility] is receiving a high volume of samples [...] about COVID-19 can be found at the [facility] website: www.[employer]/Covid19. Test performed at [facility] [place] [facility] [address] [place] [address] Director: JEFF CASTAÑEDA DO,MPH NASOPHARYNGEAL SWAB / Unknown 01/26/2020 9:00 AM CDT us Cecil Jane MD MICROBIOLOGY - GENERAL ORDERABLE S Final Result [facility] [employer] [place] [facility] [id number] [place] [id number] [place] [address] documented in this encounter Visit Diagnoses Diagnosis Constipation- Primary Unspecified constipation documented in this encounter Additional Health Concerns Infection Onset Date Last Indicated Resolved Time COVID-19 Rule Out 01/26/2020 01/26/2020 01/30/2020 7:58 PM CDT documented as of this encounter Care Teams Resident Inspector Relationship Specialty Start Date End Date Tirso Weber MD [address] [place] [address] PCP - General 08/15/15 documented as of this encounter
--- OUTSIDE RECORDS SUMMARY | 2025-02-08 12:26 | XMS_ITS | Patient Health Record ---
Author Organization [facility] Address [address] [place], [place] [id number] Care Team Providers Care Filter Press Tender Head Name Role Phone LARRY MORGAN Unavailable [phone] Tirso Weber Unavailable Unavailable Allergies Allergen (clinical [...] Medicationclonazepam 1 MG Oral Tablet *Reorder from [email or web address]-[email or web address].com for eRx and Interaction Alerts* 10/10/2012 Active Amitriptyline & Diet Manage Pr Active Simvastatin 10 MG Oral Tablet ORAL simvastatin 10 MG Oral TabletOriginal Medicationsimvastatin 10 MG Oral Tablet *Reorder from [employer] for eRx and Interaction Alerts* 10/10/2012 Active [...] Date Provider Diagnosis [facility] [address] [place], [place] [id number] 10/03/2024 LARRYJESUS MORGAN Metatarsalgia of right foot M77.41 ; Metatarsalgia of left foot M77.42 ; Other eccrine sweat disorders L74.8 ; Pain in right foot M79.671 and Left foot pain M79.672 [facility] [id number] [place], [place] [id number] 10/17/2024 LARRY MICHAELTENBURG Metatarsalgia of right foot [...] Insured Coverage Start Date Coverage End Date [facility] [address] [address] [place], [place] [id number] CAMELIA RAI Self - patient is the insured Medical (General) History Medical History History ICD Code Arthritis Back Trouble Surgical History Surgery Date(Month/Year) kidney transplant
--- OUTSIDE RECORDS SUMMARY | 2025-02-08 12:27 | XMS_ITS | Clinical Summary ---
Author Organization [facility] Address [address] [place] [address] Care Team Providers Care Tile Picker Name Role Phone Tirso Weber MD Primary Care Provider [phone] Alfred Rangel MD Unavailable [phone] Allergies No known active allergies Medications amitriptyline [...] 07/21/2023 Assessment & Plan (07/21/2023 10:40 AM WIRE WEAVER CLOTH): Incidental finding, without any compressive symptoms. There [...] year. Assessment & Plan (08/11/2023 3:27 PM WIRE WEAVER CLOTH): PLMS are under control with Klonopin 2 mg at bedtime. Assessment & Plan (08/05/2022 2:22 PM WIRE WEAVER CLOTH): PLMS are under control with Klonopin 2 mg at bedtime. He will follow-up with me in 1 year. Assessment & Plan (07/29/2021 3:33 PM WIRE WEAVER CLOTH): Patient will continue with Klonopin 2 mg p.o. at bedtime. Snoring 07/29/2021 Assessment & Plan (08/30/2024 3:39 PM CDT): The patient will continue positional therapy. He is on Elavil as ordered by another physician. Assessment & Plan (08/11/2023 3:28 PM WIRE WEAVER CLOTH): His snoring is not disturbing his sleep and he is practicing positional therapy. Assessment & Plan (08/05/2022 2:22 PM WIRE WEAVER CLOTH): His snoring is not disturbing his sleep and he is practicing positional therapy. Assessment & Plan (07/29/2021 3:29 PM WIRE WEAVER CLOTH): The patient will continue with positional therapy [...] on file Legal Sex Male 3:58 AM WIRE WEAVER CLOTH Gender Identity Not on file Sexual Orientation [...] , 03/27/2020, 04/21/2019, Additional history exists Insurance [employer] [facility] ACCESS [facility] MEDICARE ADVANTAGE [facility] Care Teams Tile Picker Relationship Specialty Start Date End Date Tirso Weber MD [address] [place] [address] PCP - General 07/21/19 Alfred Rangel MD 3 [place] [address] Referring Physician Neurology 10/15/23
--- OUTSIDE RECORDS SUMMARY | 2025-02-08 12:27 | XMS_ITS | Clinical Summary ---
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 Name Role Phone Tirso Weber MD Primary Care Provider [phone] Allergies No known active allergies Medications Probiotic [...] Encounters Date Type Department Care Team Description 01/30/2025 Scan AnonymAsk SRVCS Scanned, [facility] (SCAN); Procedure (SCAN) 01/19/2025 Scan HEALTH INFO SRVCS Scanned, [facility] (SCAN) 12/05/2024 8:40 AM CDT Office Visit [facility] - [address], [address] [place] [address] Alfred Rangel MD Follow Up 12/05/2024 Scan [facility] HEALTH INFO SRVCS Scanned, [facility] 12/05/2024 Travel 11/30/2024 Scan [facility] HEALTH INFO [facility]VCS Scanned, [facility] 11/22/2024 Results Follow-Up [facility] Internal [address] [address] Tirso Weber MD HEPATITIS C ANTIBODY, ANTINUCLEAR ANTIBODY WI RFX (ЮЛИЯ), C-REACTIVE PROTEIN, Additional followed-up results: 7 11/21/2024 9:20 AM CDT Office Visit [facility] Internal [address] [address] Tirso Weber MD Follow Up; Hyperlipidemia; Vitamin D Deficiency; Insomnia NOS; Wrist Pain (Patient c/o worsening B/L wrist pain, patient report having previous xray and 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 ) 11/21/2024 - 11/21/2024 11:59 PM CDT Hospital Encounter [facility] [address] [place] [address] Tirso Weber MD Discharge Disposition: Home or Self Care (Routine Discharge) 11/21/2024 Travel 11/17/2024 Patient Outreach [facility] Internal [address] [address] Tirso Weber MD Pre-visit Gap Closure from [...] Description 10/18/2025 8:40 AM CDT Office Visit [facility] - [address], [address] [place] [address] Casey Veras MD [address] [place] [address] 11/22/2025 9:40 AM CDT Office Visit [facility] Internal Medicine [address] [address] Tirso Weber MD [address] [place] [address] 12/04/2025 10:00 AM CDT [facility] - [address], [address] [place] [phone] Alfred Rangel MD [address] [place] [address] Health Maintenance Due Date Last Done Comments [...] 2033 Hepatitis C Completed 11/21/2024 PHQ-2 (Physician [place]) Completed 11/21/2024 Meningococcal B Vaccine Aged Out [...] ORDER) 01/30/2025 PROCEDURE GENERIC (SCAN ORDER) 01/30/2025 OUTSIDE PT/INR (SCAN ORDER) 01/19/2025 OUTSIDE LAB [...] from Last 3 Months Results * OUTSIDE LAB (SCAN ORDER) (01/30/2025) Only the most recent of4 resultswithin the time period is included. 01/30/2025 [facility] Scanned SCANNING Final Resu lt * PROCEDURE GENERIC (SCAN ORDER) (01/30/2025) 01/30/2025 [facility] Scanned SCANNING Final Resu lt * OUTSIDE PT/INR (SCAN ORDER) (01/19/2025) 01/19/2025 [facility] Scanned SCANNING Final Resu lt * ANTINUCLEAR ANTIBODY WI RFX (ЮЛИЯ) (11/21/2024 10:59 AM CDT) ЮЛИЯ <0.09 11/22/2024 3:31 PM CDT [facility] Comment: NEGATIVE: <0.7 RATIO ЮЛИЯ PROFILE AND TITER NOT PERFORMED THE ЮЛИЯ SCREEN TESTS FOR THE FOLLOWING ANTIBODIES BY EIA: SSA1 (RO), SSB1 (LA), GARCIA, SCL70, JO1, CENTROMERE, SALES PROMOTER HISTONE MUST BE ORDERED SEPARATELY DNA (DS) ANTIBODY <0.6 IU/ML 025 3:31 PM CDT [facility] Comment: NEGATIVE: <10 IU/mL EQUIVOCAL: 10 to 15 IU/mL POSITIVE: >15 IU/mL THIS QUANTITATIVE ASSAY IS CALIBRATED TO THE [employer]'S WO/80 STANDARD. THE LEVEL OF dsDNA AUTOANTIBODY GERERALLY CORRELATES WITH THE LEVEL OF DISEASE ACTIVITY IN SYSTEMIC LUPUS ERYTHMATOSUS 11/21/2024 10:5 9 AM CDT Tirso Weber MD LABORATORY Final Result [facility] [address] [place] [address], [id number] * RHEUMATOID FACTOR, QUANT (11/21/2024 10:59 AM CDT) RHEUMATOID FACTOR <10 <15 IU/ML 11/21/2024 7:48 PM CDT [facility] 11/21/2024 10:5 9 AM CDT Tirso Weber MD LABORATORY Final Result [facility] [address] [place] [address], [id number] * URINALYSIS (11/21/2024 10:59 AM CDT) COLOR (U) YELLOW 11/21/2024 3:07 PM CDT [facility] TRANSPARENCY CLEAR CLEAR 11/21/2024 3:07 PM CDT [facility] SPECIFIC GRAVITY (U) <1.005 1.003 - 1.040 11/21/2024 3:07 PM CDT [facility] U PH 6.0 5.0 - 9.0 11/21/2024 3:07 PM CDT [facility] PROTEIN RANDOM (U) NEGATIVE NEGATIVE 11/21/2024 3:07 PM CDT [facility] GLUCOSE (U) NEGATIVE NEGATIVE 11/21/2024 3:07 PM CDT [facility] KETONES MG/DL (U) NEGATIVE NEGATIVE 11/21/2024 3:07 PM CDT [facility] BILIRUBIN (U) NEGATIVE NEGATIVE 11/21/2024 3:07 PM CDT [facility] BLOOD (U) NEGATIVE NEGATIVE 11/21/2024 3:07 PM CDT [facility] UROBILINOGEN 0.2 0.0 - 2.0 EU/DL 11/21/2024 3:07 PM CDT [facility] NITRITES NEGATIVE NEGATIVE 11/21/2024 3:07 PM CDT [facility] LEUKOCYTES (U) NEGATIVE NEGATIVE 11/21/2024 3:07 PM CDT [facility] RBC/HPF 0-3 0 - 3 /HPF 11/21/2024 3:07 PM CDT [facility] WBC/HPF 0-3 0 - 3 /HPF 11/21/2024 3:07 PM CDT [facility] EPI/HPF 0-3 /HPF 11/21/2024 3:07 PM CDT [facility] BACTERIA (U) NONE SEEN NONE SEEN 11/21/2024 3:07 PM T [facility] URINE SPECIMEN OBTAINED BY CLEAN CATCH PROCEDURE / Unknown 11/21/2024 10:59 AM CDT Tirso Weber MD URINE ORDERABLES Final Result [facility] [address] [place] [address], * (ABNORMAL) COMPREHENSIVE METABOLIC PANEL (11/21/2024 10:59 AM CDT) SODIUM S/P/B 143 136 - 145 MMOL/L 11/21/2024 3:47 PM CDT [facility] POTASSIUM S/P/B 4.6 3.5 - 5.1 MMOL/L 11/21/2024 3:47 PM CDT [facility] CHLORIDE S/P/B 105 98 - 107 MMOL/L 11/21/2024 3:47 PM CDT [facility] CO2 29.2 21 - 32 MMOL/L 11/21/2024 3:47 PM CDT [facility] GLUCOSE 93 70 - 99 MG/DL 11/21/2024 3:47 PM CDT [facility] BUN 15 7 - 18 MG/DL 11/21/2024 3:47 PM T [facility] CREATININE S/P/B 1.15 0.70 - 1.30 MG/DL 11/21/2024 3:47 PM CDT [facility] CALCIUM S/P/B 9.4 8.4 - 10.5 MG/DL 11/21/2024 3:47 PM T [facility] BILIRUBIN TOTAL S/P/B 0.5 0.2 - 1.0 MG/DL 11/21/2024 3:47 PM T [facility] ALKALINE PHOSPHATASE S/P/B 81 45 - 115 U/L 11/21/2024 3:47 PM T [facility] AST 34 15 - 37 U/L 11/21/2024 3:47 PM T [facility] ALT 37 16 - 63 U/L 11/21/2024 3:47 PM T [facility] TOTAL PROTEIN S/P/B 7.0 6.4 - 8.2 G/DL 11/21/2024 3:47 PM T [facility] ALBUMIN S/P/B 3.9 3.4 - 5.0 G/DL 11/21/2024 3:47 PM T [facility] ANION GAP 8.8 5 - 15 MMOL/L 11/21/2024 3:47 PM T [facility] Comment:REFERENCE RANGE NOT ESTABLISHED OSMOLALITY (CALC) 297 MOSM/KG 025 3:47 PM T [facility] Comment:REFERENCE RANGE NOT ESTABLISHED GFR ESTIMATE 70(L) >90 ML/MIN/1. 73 M2 11/21/2024 3:47 PM T [facility] GFR NOTES GFR REFERENCE S: 11/21/2024 3:47 PM T [facility] Comment: THE ESTIMATED GFR IS CALCULATED USING [...] ml/min/1.73 m2 11/21/2024 10:5 9 AM CDT us Tirso Weber MD LABORATORY Final Result [facility] [address] [place] [address], * (ABNORMAL) LIPID PANEL (11/21/2024 10:59 AM CDT) Pathologist [facility] CHOLESTEROL 179 <200 MG/DL 11/21/2024 3:47 PM CDT [facility] TRIGLYCERIDES 67 <150 MG/DL 11/21/2024 3:47 PM CDT [facility] HDL 65 >40 MG/DL 11/21/2024 7:33 PM CDT [facility] LDL-C 101(H) <100 MG/DL 11/21/2024 7:33 PM CDT [facility] VLDL CALCULATION 13 5 - 28 MG/DL 11/21/2024 7:33 PM CDT [facility] CHOL/HDL RATIO 2.8 0.0 - 4.0 11/21/2024 7:33 PM CDT [facility] LDL/HDL 1.6 0.41 - 2.13 11/21/2024 7:33 PM CDT [facility] NON HDL CHOLESTEROL 114 <140 MG/DL 11/21/2024 7:33 PM CDT [facility] 11/21/2024 10:5 9 AM CDT us Tirso Weber MD LABORATORY Final Result Performing Organization Address City/[facility]/ZIP Co de Phone Number [facility] [address] [place] [address], [place] [phone] * HEPATITIS C ANTIBODY (11/21/2024 10:59 AM CDT) Pathologist [facility] HEPATITIS C AB NON-REACTI VE NON-REACT ERIC 11/21/2024 7:48 PM CDT [facility] Comment: ANTIBODIES TO HCV NOT DETECTED. DOES NOT EXCLUDE THE POSSIBILITY OF EXPOSURE TO HCV. 11/21/2024 10:5 9 AM CDT us Tirso Weber MD LABORATORY Final Result Performing Organization Address City/[facility] Co de Phone Number [facility] [address] [place] [address], [place] [phone] * (ABNORMAL) C-REACTIVE PROTEIN (11/21/2024 10:59 AM CDT) [facility] C-REACTIVE PROTEIN 0.31(H) <0.30 mg/dL 11/21/2024 3:47 PM CDT [facility] 11/21/2024 10:5 9 AM CDT us Tirso Weber MD LABORATORY Final Result Performing Organization Address City/[facility]/ZIP Co de Phone Number [facility] [address] [place] [address], [place] [phone] * (ABNORMAL) CBC W/DIFF AUTOMATED (11/21/2024 10:59 AM CDT) [facility] WBC 5.31 4.00 - 10.80 x10'3/uL 11/21/2024 2:30 PM CDT [facility] RBC 4.72 4.50 - 6.10 x10'6/uL 11/21/2024 2:30 PM CDT [facility] HGB 13.4 13.0 - 18.0 G/DL 11/21/2024 2:30 PM CDT [facility] HCT 42.8 37.0 - 52.0 % 11/21/2024 2:30 PM CDT [facility] MCV 90.7 78.0 - 100.0 FL 11/21/2024 2:30 PM CDT [facility] MCH 28.4 27.0 - 31.0 PG 11/21/2024 2:30 PM CDT [facility] MCHC 31.3(L) 33.0 - 36.0 G/DL 11/21/2024 2:30 PM CDT [facility] RDW 15.7(H) 11.5 - 14.5 % 11/21/2024 2:30 PM CDT [facility] PLT 259 150 - 350 x10'3/uL 11/21/2024 2:30 PM CDT [facility] MPV 10.3 7.4 - 10.4 FL 11/21/2024 2:30 PM CDT [facility] DIFFERENTIAL TYPE AUTOMATED DIFFERENTIAL 11/21/2024 2:31 PM CDT [facility] NEUTROPHILS % 56.4 % 11/21/2024 2:31 PM CDT [facility] LYMPHOCYTES % 26.2 % 11/21/2024 2:31 PM CDT [facility] MONOCYTES % 9.6 % 11/21/2024 2:31 PM CDT [facility] EOSINOPHILS % 7.0 % 11/21/2024 2:31 PM CDT [facility] BASOPHILS % 0.6 % 11/21/2024 2:31 PM CDT [facility] IMMATURE GRANS % 0.2 % 11/21/2024 2:31 PM CDT [facility] ABS. NEUTROPHILS 3.00 1.60 - 8.30 x10'3/uL 11/21/2024 2:31 PM CDT [facility] ABS. LYMPHOCYTES 1.39 0.80 - 4.70 x10'3/uL 11/21/2024 2:31 PM CDT [facility] ABS. MONOCYTES 0.51 0.00 - 1.50 x10'3/uL 11/21/2024 2:31 PM CDT [facility] ABS. EOSINOPHILS 0.37 0.00 - 0.40 x10'3/uL 11/21/2024 2:31 PM CDT [facility] ABS. BASOPHILS 0.03 0.00 - 0.20 x10'3/uL 11/21/2024 2:31 PM CDT [facility] ABS. IMMATURE GRANULOCYTES 0.01 0.00 - 0.03 x10'3/uL 11/21/2024 2:31 PM CDT [facility] 11/21/2024 10:5 9 AM CDT Tirso Weber MD LABORATORY Final Result Performing Organization Address City/State/[facility] Co de Phone Number [facility] [address] [place] [address], * VITAMIN D, 25 OH (11/21/2024 10:59 AM CDT) VITAMIN D 25 HYDROXY TOTAL S/P/B 62.0 30 - 100 NG/ML 11/21/2024 3:47 PM CDT [facility] Comment: DEFICIENT <20 INSUFFICIENT 20-30 SUFFICIENT 30-100 11/21/2024 10:5 9 AM CDT Tirso Weber MD LABORATORY Final Result -[facility] [address] [facility] [place] [address], [place] [phone] * (ABNORMAL) CK (CPK) (11/21/2024 10:59 AM CDT) CPK 409(H) 39 - 308 U/L 11/21/2024 8:11 PM CDT [facility] 11/21/2024 10:5 9 AM CDT Tirso Weber MD LABORATORY Final Result [facility] [address] 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
== END 2025-02-08 12:23 | disposition home or self-care (01) ==
PROVIDERS: PCP Internal Medicine; Visit Provider Urology
DX: C61 Malignant neoplasm of prostate (principal)
CPT/HCPCS: 51600; 74430; Q9967